=== PATIENT | female | born 1975 | race Hispanic/Latino ===

== ENCOUNTER 2017-05-28 17:12 | Inpatient (IN) | payer SELFPAY ==
[~2017-05-28 17:12] MED LIST: ISOVUE-370 76%-LOCM 1 ML ONE
[2017-05-28 17:38] LABS: Hematocrit 45.5 % (36.0-47.0); Red Blood Cell (RBC) Count 5.22 mill/uL (4.20-5.40); White Blood Cell (WBC) Count 21.7 thou/uL (4.8-10.8)
[2017-05-28 17:58] LABS: Band 11 % (5-11); Neutrophil 74 % (42-75)
[2017-05-28 18:03] LABS: ALT (SGPT) 12 U/L (8-55); AST (SGOT) 16 U/L (5-34); Alkaline Phosphatase 139 U/L (40-150); Anion Gap 13 mmol/L (10-20); BUN (Urea Nitrogen) 12 mg/dL (7.0-18.7); Bilirubin, Total 0.6 mg/dL (0.2-1.2); Calc. Creatinine Clearance 0 mL/min (70-130); Calcium 9.4 mg/dL (7.8-10.44); Carbon Dioxide 28 mmol/L (22-29); Chloride 99 mmol/L (98-107); Estimated GFR-MDRD 81; Globulin 3.5 g/dL (2.4-3.5); Protein, Total 7.5 g/dL (6.0-8.3)
[2017-05-28] MEDS ORDERED: Acetaminophen 500 MG TAB ONE ×2 (19:01)
[2017-05-28 19:09] LABS: Bilirubin Negative (Negative); Blood, Urine Negative (Negative); Glucose, Urine (Dipstick) >=1000 mg/dL (Negative); Ketone, Urine Trace mg/dL (Negative); Nitrite Negative (Negative); Protein, Urine (Dipstick) Negative (Neg-Trace); Urobilinogen 0.2 mg/dL (0.2-1.0)
[2017-05-28 21:34] LABS: Bacteria/HPF None Seen HPF (None Seen); Hyaline Casts/LPF 0-3 HYALINE CAST LPF (0-3 Hyaline); RBC/HPF 0-3 HPF (0-3); Squamous Epithelial 0-3 HPF (0-3); WBC/HPF 0-3 HPF (0-3)
[2017-05-28] MEDS ORDERED: cefTRIAXone\\ROCEPHIN 1 GM VIAL ONE (21:43)
[2017-05-28] MEDS ORDERED: diphenhydrAMINE HCl 50 MG/ML 1 ML VIAL ONE (22:13)
--- NOTE | 2017-05-28 23:17 | CT ---
CT OF THE ABDOMEN AND PELVIS WITH CONTRAST: COMPARISON: 05/07/2017 HISTORY: Lower abdominal pain. The patient was seen for similar pain in the past and was diagnosed with pelv ic inflammatory disease. TECHNIQUE: Multiple contiguous axial images are obtained in a CT of the abdomen and pelvis with contrast. Rossana nal reformats were performed. FINDINGS: The patient is status post cholecystectomy. There is a stable hyperdense region adjacent to the fal ciform ligament which may represent a small amount of focal fat in the liver. No focal liver lesion s are otherwise seen. There is a 2.5 cm hypodensity in the right kidney which likely represents a c yst. The left kidney, adrenal glands, spleen, and pancreas are unremarkable. No free air, free flu id, or stranding changes are seen in the abdomen or pelvis. The reproductive organs are unremarkable. No focal fluid collection is seen in either adnexal regio n. The large and small bowel are unremarkable. The appendix is not definitely seen. Degenerative changes are seen in the spine. The visualized inferior thorax and abdominal wall soft tissues are unremarkable. IMPRESSION: 1. No evidence of acute intraabdominal/pelvic abnormality. 2. Right renal cyst. POS: [facility]
[2017-05-28] MEDS ORDERED: Acetaminophen 500 MG TAB PO PRN (23:43)
[2017-05-28] MEDS ORDERED: Gentamicin 80 MG/2 ML VIAL IVPB SCH (23:45)
[2017-05-28] MEDS ORDERED: Dextrose 50% Abboject 50 ML SYRINGE SLOW IVP PRN (23:49)
[2017-05-28] MEDS ORDERED: Dextrose 5% in Water 1,000 ML IV PRN (23:49)
[2017-05-28] MEDS ORDERED: Fluconazole 100 MG TAB PO SCH (23:59)
--- NOTE | 2017-05-29 00:02 | ULT ---
PELVIC ULTRASOUND 05/28/17 HISTORY: Pelvic pain. FINDINGS: Multiple transabdominal and endovaginal sonographic images of the pelvis are obtained. The uterus has a normal sonographic appearance measuring 11.6 cm x 5.9 cm x 6.1 cm. The endometrial stripe measures 0.6 cm in thickness which is within normal limits for the patient's age. A few Nabothian cysts are seen in the cervix. The ovaries demonstrate a normal sonographic appearance bilaterally with the right ovary measuring 3 .4 cm x 4.3 cm x 2.4 cm and the left ovary measuring 4.8 cm x 2.9 cm x 2.2 cm. Doppler evaluation of each ovary with spectral analysis and color flow evaluation demonstrates arter ial and venous flow. No free fluid is seen in the cul-de-sac. Free fluid is seen in the pelvis on study on 04/15/17 is no longer visualized on this exam. IMPRESSION: Normal appearing uterus and bilateral ovaries. POS: [facility]
[2017-05-29] MEDS ORDERED: Insulin Detemir 100 UNITS/ML 20 UNITS in Pre-Filled Syringe 1 EACH SC SCH (00:30)
[2017-05-29] MEDS ORDERED: PROVENTIL INHALER 6.7 G (200 INHALATIONS) INH PRN (00:31)
[2017-05-29] MEDS: Lactated Ringer's 1,000 ML IV SCH ×4 (00:42→17:37)
[2017-05-29] MEDS: Sodium Chloride 0.9% 20 ML ONE ×2 (00:44→00:49)
[2017-05-29] MEDS: Clindamycin/D5W 900 MG in Premix Bag 1 BAG IVPB SCH ×3 (00:45→15:59)
[2017-05-29] MEDS ORDERED: Ibuprofen 800 MG TAB PO PRN (06:00)
[2017-05-29] MEDS ORDERED: Ibuprofen 800 MG TAB PO SCH (06:00)
[2017-05-29] MEDS: HumaLOG 300 UNITS/3 ML VIAL SC PRN (06:19)
[2017-05-29 07:30] LABS: #Eosinphils 0.2 thou/uL (0.0-0.7); #Lymphocytes 1.4 thou/uL (1.20-3.40); #Monocytes 0.8 thou/uL (0.11-0.59); #Neutrophils 12.3 thou/uL (1.40-6.50); %Basophils 0.2 % (0.0-1.0); %Eosinophils 1.3 % (0.0-10.0); %Lymphocytes 9.3 % (21.0-51.0); %Monocytes 5.1 % (0.0-10.0); Hematocrit 37.8 % (36.0-47.0); Mean Platelet Volume 9.5 fL (7.4-10.4); Red Blood Cell (RBC) Count 4.35 mill/uL (4.20-5.40); White Blood Cell (WBC) Count 14.6 thou/uL (4.8-10.8)
[2017-05-29] MEDS ORDERED: glipiZIDE 5 MG TAB PO SCH (07:30)
[2017-05-29 07:46] LABS: Anion Gap 11 mmol/L (10-20); BUN (Urea Nitrogen) 6 mg/dL (7.0-18.7); Calc. Creatinine Clearance 192 mL/min (70-130); Calcium 8.2 mg/dL (7.8-10.44); Carbon Dioxide 25 mmol/L (22-29); Chloride 104 mmol/L (98-107); Estimated GFR-MDRD Greater than 90
--- NOTE | 2017-05-29 08:16 | PRG ---
DATE OF SERVICE: 05/29/2017 SUBJECTIVE: The patient reports slight decrease in her pain overnight. She denies any nausea, vomi ting. She does have an appetite. OBJECTIVE: VITAL SIGNS: Temperature 97.3, pulse 76, respiratory rate 19, blood pressure 101/53. GENERAL: Nontoxic appearing female in no acute distress. ABDOMEN: Obese, tender in the bilateral lower quadrants. ASSESSMENT AND PLAN: Hospital day #2 for this 41-year-old female with pelvic inflammatory disease a nd failed outpatient management. White blood cell count is decreased to 14.6 this morning and the p atient has been afebrile since her temperature in the emergency department of 102.6. We will consid er her for discharge tomorrow if she continued to be afebrile.
--- NOTE | 2017-05-29 08:17 | HP ---
DATE OF SERVICE: 05/28/2017 CHIEF COMPLAINT: Pelvic inflammatory disease with failed outpatient management. HISTORY OF PRESENT ILLNESS: At the time of presentation, Ms. Lewis is a 41- year-old female who was diagnosed with pelvic inflammatory disease in early May. She had outpatient management with doxycycline and Flagyl, but did not complete one of the medications and states that the other cause nausea and vomiting, so it has not been completely treated. She returns today with low- grade temperatures at home, but a fever of 102.6 in the emergency department and worsening lower abdominal pain. The patient denies any nausea or vomiting. She does report fever and chills at home of 100.0. She denies any cardiovascular complaints. She does report a productive cough with clear sputum for the last month. She was seen by her [facility] primary care provider and a Ventolin inhaler was prescribed. The patient states that this does help with the cough. She denies any usual vaginal discharge, itching, odor or irritation. REVIEW OF SYSTEMS: Per HPI. PAST MEDICAL HISTORY: 1. Diabetes. 2. Remote history of hypertension. PAST SURGICAL HISTORY: section x3, the last one was 2 years ago. GYNECOLOGIC HISTORY: The patient states that she thinks her last Pap smear was approximately 2 years ago after her last delivery. She denies any history of sexually transmitted infections. She has been for 20 years and denies any new sexual partners. She was last sexually active 1 week ago. SOCIAL HISTORY: The patient reports stopping smoking 1 year ago. She denies any alcohol or illicit drug use. ALLERGIES: PENICILLIN, patient is unsure of the reaction, CODEINE. Patient states that made her tonsils bled after tonsillectomy. VANCOMYCIN causes hives, CIPROFLOXIN cough hives. MEDICATIONS: 1. Levemir 40 mg in the morning and 20 mg in the evening. 2. Glyburide 5 mg p.o. each morning. 3. Ventolin inhaler 2 puffs q.4 hours as needed. PHYSICAL EXAMINATION: VITAL SIGNS: Temperature 97.3, pulse 76, respiratory rate 19, blood pressure 101/63. GENERAL: Nontoxic appearing female in no acute distress. HEENT: Normocephalic, atraumatic. LUNGS: Respirations are unlabored. ABDOMEN: Obese, soft, tender in the bilateral lower quadrants. No rebound, no guarding. EXTREMITIES: Without cyanosis, clubbing or edema. NEUROLOGIC: Alert and oriented x3, no focal deficits. PSYCHIATRIC: Normal affect. IMAGING: CT of the abdomen and pelvis is negative for acute intra-abdominal or pelvic abnormality and a right renal cyst was noted. Pelvic ultrasound is notable for normal appearing uterus and bilateral ovaries. LABORATORY DATA: White blood cell count 21.7, hematocrit 45.5, platelets 204, 000. Sodium and potassium are within normal limits. BUN is 12, creatinine 0.78 , and glucose is 330. Urinalysis is notable for glucosuria, trace ketonuria, negative for pyuria. Wet prep is notable for Anita, gonorrhea, chlamydia, and blood cultures are all pending. ASSESSMENT AND PLAN: A 41-year-old female with failed outpatient management of pelvic inflammatory disease. The patient will be admitted and placed on gentamicin and clindamycin for treatment of the pelvic inflammatory disease. We will administer Diflucan 150 mg p.o. in a single dose for treatments of the Anita vaginitis. We will place the patient back on her Levemir and glyburide for control of her diabetes with sliding scale insulin in the moderate dose range for coverage as needed. We will plan to repeat labs in the morning. MTDD
[2017-05-29] MEDS ORDERED: Lisinopril 2.5 MG TAB PO SCH (09:00)
[2017-05-29] MEDS: Insulin Detemir 100 UNITS/ML 40 UNITS in Pre-Filled Syringe 1 EACH SC SCH (09:12)
[2017-05-29] MEDS: glyBURIDE 5 MG TAB PO SCH (09:55)
--- NOTE | 2017-05-29 11:16 | RAD ---
SINGLE VIEW OF THE CHEST: Comparison: 12-04-16 History: Sepsis. FINDINGS: Single view of the chest shows a normal sized cardiomediastinal silhouette with atherosclerotic calc ifications in the aorta. There is no evidence of consolidation, mass, or pleural effusions. IMPRESSION: 1. No evidence of acute cardiopulmonary disease. 2. Atherosclerotic disease. POS: [facility]
[2017-05-29] MEDS: Simethicone Chewable 80 MG TAB PO PRN (18:09)
[2017-05-29] MEDS: Insulin Detemir 100 UNITS/ML 20 UNITS in Pre-Filled Syringe 1 EACH SC SCH (21:06)
[2017-05-30] MEDS: Clindamycin/D5W 900 MG in Premix Bag 1 BAG IVPB SCH ×3 (00:02→16:37)
[2017-05-30] MEDS: Lactated Ringer's 1,000 ML IV SCH ×2 (06:22→09:30)
--- NOTE | 2017-05-30 08:07 | PRG ---
DATE OF SERVICE: 05/30/2017 HISTORY OF PRESENT ILLNESS: The patient is a 41-year-old diabetic female who was admitted for PID a fter failed outpatient therapy. The patient is now on hospital day #2 on IV gentamicin and clindamy kush. She has remained afebrile since just after admission and has had improvement in her white coun t from 21,000 to 14,000 yesterday. The patient reports this morning that her pain is improving. Calvin bueno has a little bit of lower abdominal pain still, but is much improved since admission. She is aski ng about when she can discharge home. PHYSICAL EXAMINATION: VITAL SIGNS: Blood pressure is 106/60, temperature 97.9, pulse of 56, respiratory rate of 16. GENERAL: She appears to be in no acute distress. She is alert and oriented, and cooperative and pl easant to interact with. HEENT: Normocephalic, atraumatic. ABDOMEN: Soft. She has some minimal tenderness to palpation and the patient is ambulating. ASSESSMENT AND PLAN: 1. The patient is a 41-year-old female with a diagnosis of pelvic inflammatory disease on gentamici n and clindamycin. We will continue these antibiotics until tomorrow. 2. Diabetes mellitus. The patient has shown improvement in her blood sugars with her home medicati on use. Fasting sugars this morning were 92. 3. Anticipate discharge tomorrow.
[2017-05-30] MEDS ORDERED: Fluconazole 100 MG TAB PO SCH (09:00)
[2017-05-30] MEDS ORDERED: Lactinex Tablet PO SCH (09:00)
[2017-05-30] MEDS: glyBURIDE 5 MG TAB PO SCH (09:30)
[2017-05-30] MEDS: Insulin Detemir 100 UNITS/ML 40 UNITS in Pre-Filled Syringe 1 EACH SC SCH (09:31)
[2017-05-30] MEDS: HumaLOG 300 UNITS/3 ML VIAL SC PRN ×2 (12:47→16:36)
[2017-05-30] MEDS: Simethicone Chewable 80 MG TAB PO PRN (20:15)
[2017-05-30] MEDS: Insulin Detemir 100 UNITS/ML 20 UNITS in Pre-Filled Syringe 1 EACH SC SCH (21:19)
[2017-05-31] MEDS: Clindamycin/D5W 900 MG in Premix Bag 1 BAG IVPB SCH (00:14)
[2017-05-31 05:42] LABS: #Eosinphils 0.5 thou/uL (0.0-0.7); #Lymphocytes 2.9 thou/uL (1.20-3.40); #Monocytes 0.9 thou/uL (0.11-0.59); #Neutrophils 3.9 thou/uL (1.40-6.50); %Basophils 0.5 % (0.0-1.0); %Eosinophils 6.3 % (0.0-10.0); %Lymphocytes 34.3 % (21.0-51.0); %Monocytes 11.3 % (0.0-10.0); Hematocrit 36.9 % (36.0-47.0); Mean Platelet Volume 9.8 fL (7.4-10.4); Red Blood Cell (RBC) Count 4.19 mill/uL (4.20-5.40); White Blood Cell (WBC) Count 8.3 thou/uL (4.8-10.8)
--- NOTE | 2017-05-31 07:18 | DIS ---
DATE OF ADMISSION: 05/28/2017 FATE OF DISCHARGE: 05/31/2017 LOCATIONS: [facility] on [address], [place]. The patient in room 318. PRINCIPAL DIAGNOSIS: Suspected pelvic infection. Test performed included an abdominal and pelvic C T and a pelvic ultrasound. In brief, this is a patient who was admitted by Dr. Tommy Anderson as a 41-year-old female w ith a diagnosis of pelvic inflammatory disease in early May. She had outpatient management wi th doxycycline and Flagyl, but she did not complete one of the medications and states that the other cause nausea and vomiting, so it was not adequately treated. She returned on the day of admission with a complaint of low grade temperature at home, but her fever in the ER was 102.6. She was admit hany with a diagnosis of persistent PID and diabetes. She has a remote history of hypertension. For full details on that admission, please turn to the H\T\P. She has a known allergy to PENICILLIN, C ODEINE, VANCOMYCIN, and CIPROFLOXACIN. Her medications at home included Levemir and glyburide for d iabetes. During this admission, she was placed on gentamicin and clindamycin. After her admission, her T-max was 99.8 on 05/28/2017 at 2342. After that temperature, she remained afebrile and on the day of discharge when I evaluated the patient at 0600, her most recent temperature at 0420 was 98.5 , pulse was in the 70s to 60s, blood pressures were 115/78-121/78. On laboratory assessment, initia l white blood cell count was 21 and a repeat value was 8.3 on the day of discharge. Hematocrit was 36.9 at last check. She did have a CT scan performed on 05/28/2017, which showed no evidence of acu te intraabdominal pathology. Pelvic ultrasound was also performed on 05/28/2017 and then had a norm al appearing uterus and bilateral ovaries. As she had been afebrile for 48 hours, the decision was made to discharge her home on 05/31/2017, despite the fact that her gonorrhea and chlamydia PCR were not yet back. We did call the lab on the morning of 05/31/2017 at approximately 0600 and we were n otified that it will not be back for an additional 24 to possibly 48 hours. I instructed the patien t to follow up at [facility] to check the results of this last test. It is important to note that she also had a urine culture positive for GBS. Her blood cultures showed no growth to date. Our fi nal assessment on day of discharge is resolved pelvic infection, history of known diabetes. DISCHARGE MEDICATIONS: Include Doxycycline 100 mg 1 p.o. b.i.d. for 7 days. I did instruct her to complete her course of therapy and to continue her oral medication for her diabetes. I instructed h er to follow up at [facility] no later than 1 week for continue followup. The patient's bedside gl ucose readings ranged from 92 fasting to one high value of 170 on 05/30/2017 at 1634. On physical examination, her abdomen was soft and nontender. The patient stated that she felt horacio r. Once again, decision was made to discharge her home and have her follow up at [facility].
[2017-05-31 07:36] VITALS: BP 117/76; TEMP 98.3
[2017-05-31] MEDS: Lactated Ringer's 1,000 ML IV SCH (07:36)
== END 2017-05-31 08:00 | disposition home or self-care (01) | DRG 759 ==
LOC: ERS 17:12 → 3SE 23:39
PROVIDERS: ADMIT Obstetrics & Gynecology Obstetrics; ATTEND Obstetrics & Gynecology Obstetrics
DX: N73.9 Female pelvic inflammatory disease, unspecified (principal); I10 Essential (primary) hypertension; E11.9 Type 2 diabetes mellitus without complications; Z88.0 Allergy status to penicillin; B37.3 Candidiasis of vulva and vagina; Z87.891 Personal history of nicotine dependence; Z88.1 Allergy status to other antibiotic agents; Z88.5 Allergy status to narcotic agent; Z90.49 Acquired absence of other specified parts of digestive tract
CPT/HCPCS: 36415; 36416; 71010; 74177; 76856; 80048; 80053; 81003; 81025; 83605; 85025; 87040; 87077; 87086; 87480; 87491; 87510; 87591; 87660; 96361; 96365; 96368; A4216; J0696; J1200; J1580; J1815; J3490; J7050

== ENCOUNTER 2017-12-21 13:00 | Emergency (ER) | payer SELFPAY ==
[2017-12-21 13:37] LABS: #Basophils 0.1 thou/uL (0.0-0.2); #Eosinphils 0.3 thou/uL (0.0-0.7); #Lymphocytes 1.6 thou/uL (1.20-3.40); #Monocytes 0.6 thou/uL (0.11-0.59); #Neutrophils 5.1 thou/uL (1.40-6.50); %Basophils 1.2 % (0.0-1.0); %Eosinophils 4.3 % (0.0-10.0); %Lymphocytes 21.2 % (21.0-51.0); %Monocytes 7.5 % (0.0-10.0); %Neutrophils 65.8 % (42.0-75.0); Mean Corpuscular Hemoglobin 29.4 pg (27.0-31.0); Mean Corpuscular Volume 86.5 fl (81.0-99.0); Mean Platelet Volume 8.5 fL (7.4-10.4); Platelet Count 215 thou/uL (130-400); RBC Distribution Width 12.5 % (11.5-14.5); White Blood Cell (WBC) Count 7.7 thou/uL (4.8-10.8)
[2017-12-21 14:03] LABS: ALT (SGPT) 32 U/L (8-55); AST (SGOT) 11 U/L (5-34); Alkaline Phosphatase 156 U/L (40-150); Anion Gap 13 mmol/L (10-20); BUN (Urea Nitrogen) 13 mg/dL (7.0-18.7); Bilirubin, Total 0.5 mg/dL (0.2-1.2); CK (CPK) 47 U/L (29-168); Calc. Creatinine Clearance 0 mL/min (70-130); Calcium 9.4 mg/dL (7.8-10.44); Carbon Dioxide 27 mmol/L (22-29); Chloride 103 mmol/L (98-107); Estimated GFR-MDRD 86; Globulin 3.1 g/dL (2.4-3.5); Glucose 270 mg/dL (70-105); Potassium 4.1 mmol/L (3.5-5.1); Protein, Total 7.1 g/dL (6.0-8.3); Sodium 139 mmol/L (136-145)
[2017-12-21 14:05] LABS: CKMB 0.4 ng/mL (0-6.6); Troponin I Less than 0.010 ng/mL (< 0.028)
--- NOTE | 2017-12-21 15:35 | RAD ---
CHEST ONE VIEW: HISTORY: Chest pain. COMPARISON: Chest radiograph from 05/28/2017. FINDINGS: There is a nodule in the right mid lung, peripherally. Heart size is at the upper limits of normal. No focal air space consolidation, pneumothorax, or effusion. IMPRESSION: Faint right mid lung peripheral pulmonary nodule. This may reflect a pulmonary vessel seen enface. Follow-up radiographs in six months recommended. POS: [facility]
== END 2017-12-21 15:44 | disposition home or self-care (01) ==
LOC: ERS 13:00
DX: R00.2 Palpitations (principal); E66.9 Obesity, unspecified; J45.909 Unspecified asthma, uncomplicated; E11.9 Type 2 diabetes mellitus without complications; F41.9 Anxiety disorder, unspecified; F32.9 Major depressive disorder, single episode, unspecified; Z79.4 Long term (current) use of insulin
CPT/HCPCS: 36415; 71045; 80053; 82553; 84443; 84484; 85025; 93005; 94760

== ENCOUNTER 2018-05-13 12:25 | Inpatient (IN) | payer SELFPAY ==
[2018-05-13] MEDS ORDERED: Ibuprofen 200 MG TAB ONE (12:41)
[2018-05-13 13:18] LABS: Hemoglobin 14.5 g/dL (12.0-16.0); Mean Corpuscular HGB CONC 33.2 g/dL (32.0-36.0); Mean Corpuscular Hemoglobin 28.6 pg (27.0-31.0); Mean Platelet Volume 8.9 fL (7.4-10.4); Platelet Count 224 thou/uL (130-400); RBC Distribution Width 12.2 % (11.5-14.5); Red Blood Cell (RBC) Count 5.08 mill/uL (4.20-5.40); White Blood Cell (WBC) Count 20.7 thou/uL (4.8-10.8)
[2018-05-13] MEDS ORDERED: Morphine 4 MG/ML VIAL ONE (13:30)
[2018-05-13] MEDS ORDERED: Ondansetron HCl/PF 4 MG/2 ML Vial ONE (13:30)
[2018-05-13 13:33] LABS: Band 24 % (5-11); Eosinophils 1 % (0-10); Lymphocytes 6 % (21-51); MDiff Complete? YES; Monocytes 3 % (0-10); Neutrophil 66 % (42-75); RBC Morphology Normal
[2018-05-13 13:34] LABS: ALT (SGPT) 17 U/L (8-55); AST (SGOT) 17 U/L (5-34); Albumin 4.3 g/dL (3.5-5.0); Alkaline Phosphatase 184 U/L (40-150); Anion Gap 15 mmol/L (10-20); BUN (Urea Nitrogen) 9 mg/dL (7.0-18.7); Bilirubin, Total 0.8 mg/dL (0.2-1.2); Calc. Creatinine Clearance 0 mL/min (70-130); Calcium 9.9 mg/dL (7.8-10.44); Carbon Dioxide 26 mmol/L (22-29); Chloride 96 mmol/L (98-107); Estimated GFR-MDRD 71; Globulin 4.2 g/dL (2.4-3.5); Glucose 339 mg/dL (70-105); Potassium 3.9 mmol/L (3.5-5.1); Protein, Total 8.5 g/dL (6.0-8.3); Sodium 133 mmol/L (136-145)
--- NOTE | 2018-05-13 14:06 | ULT ---
LEFT LOWER EXTREMITY VENOUS DOPPLER WITH SPECTRAL ANALYSIS AND COLORFLOW EVALUATION: 05/13/2018 HISTORY: Left foot infection for a few months. Left leg swelling and pain. COMPARISON: 12/04/2016 TECHNIQUE: Coppola-scale, color-flow, Doppler evaluation, and spectral analysis of the left lower extremity venous structures is performed with 2D imaging. The left lower extremity common femoral, superficial femora l, popliteal, posterior tibial, most proximal greater saphenous, and profunda femoral veins are image d. FINDINGS: There is normal lumen compressibility, flow, and augmentation in the visualized deep venous structure s of the left lower extremity. There is an enlarged left inguinal lymph node, which may represent a conglomeration of lymph nodes, w hich measure 6.1 cm x 1.2 cm x 1.1 cm. Given the history of infection, this could be related to reac tive lymphadenopathy. IMPRESSION: 1. No evidence of a deep venous thrombosis involving the visualized deep venous structures of the le ft lower extremity. 2. Enlarged lymph nodes, left groin, which may be reactive. POS: [facility]
[2018-05-13] MEDS ORDERED: Cefepime 2 GM VIAL ONE (14:31)
[2018-05-13] MEDS ORDERED: Cefepime 1 GM VIAL ONE (14:32)
[2018-05-13] MEDS ORDERED: Acetaminophen 500 MG TAB ONE (15:40)
[2018-05-13] MEDS ORDERED: Dextrose 5% in Water 1,000 ML IV PRN (16:16)
[2018-05-13] MEDS ORDERED: traMADol HCl 50 MG TAB PO PRN (16:16)
[2018-05-13] MEDS ORDERED: Dextrose 50% Abboject 50 ML SYRINGE SLOW IVP PRN (16:16)
[2018-05-13] MEDS ORDERED: HumaLOG 300 UNITS/3 ML VIAL SC PRN (16:16)
[2018-05-13] MEDS ORDERED: Ondansetron HCl/PF 4 MG/2 ML Vial IVP PRN (16:16)
[2018-05-13 17:38] LABS: Bilirubin Negative (Negative); Blood, Urine Negative (Negative); Clarity CLEAR (Clear); Glucose, Urine (Dipstick) >=1000 mg/dL (Negative); Leukocyte Negative (Negative); Nitrite Negative (Negative); Protein, Urine (Dipstick) Negative (Neg-Trace); Specific Gravity, Urine 1.038 (1.002-1.036); Urobilinogen 0.2 mg/dL (0.2-1.0); pH, Urine 5.5 (5.0-9.0)
[2018-05-13] MEDS: Sodium Chloride 0.9% 1,000 ML IV SCH (18:00)
[2018-05-13] MEDS: PROVENTIL INHALER 6.7 G (200 INHALATIONS) INH SCH (18:11)
[2018-05-13 18:18] VITALS: BMI 43.9
[2018-05-13] MEDS: Docusate 100 MG CAP PO SCH (20:47)
[2018-05-13] MEDS: Acetaminophen 325 MG TAB PO PRN (20:48)
[2018-05-13] MEDS: Famotidine 20 MG TAB PO SCH (20:48)
[2018-05-13] MEDS ORDERED: Non-Formulary Item 1 EACH (Levemir Flexpen [Levemir Flexpen] 20 UNIT) SC SCH (21:00)
[2018-05-13] MEDS ORDERED: Cefepime 2 GM in Sodium Chloride 0.9% 100 ML IVPB SCH (21:00)
--- NOTE | 2018-05-13 21:02 | HP ---
DATE OF ADMISSION: 05/13/2018 REASON FOR ADMISSION: Sepsis, left lower extremity cellulitis. HISTORY OF PRESENT ILLNESS: The patient gives history of having swelling and pain in the left lower extremity. This started last night. She developed fever with chills overnight and it got worse this morning. She has been having cough with yellow expectoration and thinks that she has gotten bronchi tis as well. She has a known history of eczema, which pops up over the left foot dorsal aspect. It is currently not acting up per the patient. No complaints of urinary frequency or urgency. No compl aints of chest pain, palpitation, PND or orthopnea. She normally ambulates by herself. PAST MEDICAL AND SURGICAL HISTORY: History of diabetes mellitus type 2, obesity, eczema, specificall y over the dorsum of left foot, asthma, cholecystectomy, x3, tonsillectomy and adenoidectom y. CURRENT MEDICATIONS: The patient is on Levemir 20 units subcu q.a.m. and 50 units subcu at bedtime, albuterol inhaler p.r.n., glyburide 5 mg daily. ALLERGIES: Allergic to CIPROFLOXACIN, CODEINE, PENICILLIN and VANCOMYCIN. PERSONAL HISTORY: Does not abuse alcohol or drugs. No history of smoking. FAMILY HISTORY: Mother has diabetes. Father is healthy. The patient lives with her . CODE STATUS: Full. REVIEW OF SYSTEMS: The following complete review of systems was negative, unless otherwise mentioned in the HPI or below: Constitutional: Weight loss or gain, ability to conduct usual activities. Sk in: Rash, itching. Eyes: Double vision, pain. ENT/Mouth: Nose bleeding, neck stiffness, pain, te nderness. Cardiovascular: Palpitations, dyspnea on exertion, orthopnea. Respiratory: Shortness of breath, wheezing, cough, hemoptysis, fever or night sweats. Gastrointestinal: Poor appetite, abdom inal pain, heartburn, nausea, vomiting, constipation, or diarrhea. Genitourinary: Urgency, frequenc y, dysuria, nocturia. Musculoskeletal: Pain, swelling. Neurologic/Psychiatric: Anxiety, depressio n. Allergy/Immunologic: Skin rash, bleeding tendency. PHYSICAL EXAMINATION: GENERAL: The patient is a 42-year-old female who is currently not in any acute distress. VITAL SIGNS: Blood pressure 134/66, pulse 94 per minute, respiratory rate 20 per minute, temperature 101.3 degrees Fahrenheit, saturating 96% on room air. NECK: Supple. No elevated JVD. HEENT: Extraocular muscles intact. Pupils reacting to light. Oral cavity, mucous membranes are noé st. No exudates or congestion. CARDIOVASCULAR: S1, S2 heard. Regular rhythm. RESPIRATORY: Air entry 2+ bilateral. Scattered rhonchi plus. No rales or wheezes. ABDOMEN: Soft. Bowel sounds heard. No tenderness. EXTREMITIES: Left lower extremity, there is erythema and tenderness. There is also edema more so on the left calf area and drying of skin with eczematous scar over the left dorsum of the foot. VASCULAR: Peripheral pulses are 2+ bilateral. No ischemic ulcerations or gangrene. CENTRAL NERVOUS SYSTEM: No gross focal deficits noted. The patient is alert, awake and oriented wel l. PSYCHIATRIC: The patient's mood is euthymic. No hallucinations or delusions. LABORATORY AND X-RAY FINDINGS: Ultrasound venous Doppler of the left lower extremity done shows no e vidence of DVT and there was enlarged lymph nodes in the left groin. White count of 20, H and H 14 a nd 43, platelet count 224,000 with 66% neutrophils and 24% bands. Sodium 133, chloride 96, creatinin e 0.8, glucose is 339, alkaline phosphatase 184. AST, ALT and T bilirubin within normal limits. Alb umin is 4.3. CLINICAL IMPRESSION AND PLAN: The patient will be admitted to medical floor for sepsis, left lower e xtremity cellulitis, uncontrolled diabetes mellitus type 2, hyponatremia. The patient will be on cef epime 2 g IV q.12 hourly as she is allergic to QUINOLONES, PENICILLIN and VANCOMYCIN. She is also al lergic to CODEINE. We will also add doxycycline for her mild asthma exacerbation. She will be on al buterol nebulizer q.6 hourly, gentle hydration with normal saline at 70 mL per hour. We will continu e her Levemir and glyburide as before. We will continue to closely monitor her for any hemodynamic c ompromise.
[2018-05-13] MEDS: Insulin Glargine 20 UNITS in Pre-Filled Syringe 1 EACH SC SCH (21:40)
[2018-05-13] MEDS: Doxycycline 100 MG CAP PO SCH (21:40)
[2018-05-14] MEDS: PROVENTIL INHALER 6.7 G (200 INHALATIONS) INH SCH ×7 (00:04→22:15)
[2018-05-14] MEDS: Albuterol Sulfate 1.25 MG/3 ML NEB NEB SCH ×4 (00:04→22:13)
[2018-05-14] MEDS: Cefepime 2 GM in Sodium Chloride 0.9% 100 ML IVPB SCH ×2 (01:47→13:03)
[2018-05-14 04:56] LABS: Anion Gap 12 mmol/L (10-20); BUN (Urea Nitrogen) 8 mg/dL (7.0-18.7); Calc. Creatinine Clearance 181 mL/min (70-130); Calcium 8.6 mg/dL (7.8-10.44); Carbon Dioxide 24 mmol/L (22-29); Chloride 101 mmol/L (98-107); Estimated GFR-MDRD Greater than 90; Glucose 290 mg/dL (70-105); Potassium 3.6 mmol/L (3.5-5.1); Sodium 133 mmol/L (136-145)
[2018-05-14 05:14] LABS: Band 24 % (5-11); Hemoglobin 13.1 g/dL (12.0-16.0); Lymphocytes 5 % (21-51); MDiff Complete? YES; Mean Corpuscular HGB CONC 33.8 g/dL (32.0-36.0); Mean Corpuscular Hemoglobin 29.3 pg (27.0-31.0); Mean Corpuscular Volume 86.5 fL (78.0-98.0); Mean Platelet Volume 9.2 fL (7.4-10.4); Monocytes 2 % (0-10); Neutrophil 68 % (42-75); Platelet Count 191 thou/uL (130-400); RBC Distribution Width 12.4 % (11.5-14.5); Reactive Lymphocytes 1 % (0-10); Red Blood Cell (RBC) Count 4.49 mill/uL (4.20-5.40); White Blood Cell (WBC) Count 13.7 thou/uL (4.8-10.8)
[2018-05-14] MEDS: Sodium Chloride 0.9% 1,000 ML IV SCH (05:20)
[2018-05-14] MEDS: Acetaminophen 325 MG TAB PO PRN ×3 (05:25→20:30)
[2018-05-14] MEDS: HumaLOG 300 UNITS/3 ML VIAL SC PRN ×3 (05:25→16:58)
[2018-05-14] MEDS: Enoxaparin Sodium 40 MG/0.4 ML SYRINGE SC SCH (08:28)
[2018-05-14] MEDS: Docusate 100 MG CAP PO SCH ×2 (08:28→20:30)
[2018-05-14] MEDS: Famotidine 20 MG TAB PO SCH ×2 (08:28→20:30)
[2018-05-14] MEDS: Doxycycline 100 MG CAP PO SCH (08:28)
[2018-05-14] MEDS: glyBURIDE 5 MG TAB PO SCH (08:32)
[2018-05-14] MEDS: Insulin Glargine 40 UNITS in Pre-Filled Syringe 1 EACH SC SCH (08:32)
[2018-05-14] MEDS ORDERED: Non-Formulary Item 1 EACH (Levemir Flexpen [Levemir Flexpen] 40 UNIT) SC SCH (09:00)
[2018-05-14] MEDS ORDERED: glyBURIDE 2.5 MG TAB PO SCH (09:00)
--- NOTE | 2018-05-14 10:33 | PDOC.PN ---
- Subjective Encounter Start Date: 05/14/18 Encounter Start Time: 07:00 Subjective: feels better, still has leg pain when she bears weight on it -: no sob - Objective Resuscitation Status: Resuscitation Status FULL:Full Resuscitation MAR Reviewed: Yes Vital Signs & Weight: Vital Signs (12 hours) Temp Pulse Resp BP Pulse Ox 05/14/18 07:32 99.4 F 102 H 18 105/67 96 05/14/18 06:40 113 H 16 94 L 05/14/18 04:00 100.3 F H 106 H 20 130/81 95 05/14/18 02:27 100 18 95 05/14/18 00:00 99.2 F 102 H 20 126/75 98 Weight Weight 240 lb 7 oz I&O: 05/13/18 05/14/18 05/15/18 06:59 06:59 06:59 Intake Total 1800 Balance 1800 Result Diagrams: 05/14/18 03:51 05/14/18 03:51 Additional Labs: Accuchecks 05/14/18 05/13/18 05:22 19:40 POC Glucose 293 H 306 H Phys Exam - Physical Examination HEENT: PERRLA, moist MMs Neck: no JVD, supple Respiratory: no wheezing, no rales Cardiovascular: RRR, no significant murmur Gastrointestinal: soft, non-tender, positive bowel sounds Musculoskeletal: pulses present, edema present left leg has more edema and erythem, has foot dorsum chr eczema Neurological: non-focal, moves all 4 limbs Psychiatric: normal affect, A&O x 3 Dx/Plan (1) Left leg cellulitis Code(s): L03.116 - CELLULITIS OF LEFT LOWER LIMB Status: Acute (2) Sepsis Code(s): A41.9 - SEPSIS, UNSPECIFIED ORGANISM Status: Acute Qualifiers: Sepsis type: sepsis due to unspecified organism Qualified Code(s): A41.9 - Sepsis, unspecified organism (3) Asthma Code(s): J45.909 - UNSPECIFIED ASTHMA, UNCOMPLICATED Status: Chronic Qualifiers: Asthma severity: moderate (4) DM (diabetes mellitus), type 2, uncontrolled Code(s): E11.65 - TYPE 2 DIABETES MELLITUS WITH HYPERGLYCEMIA Status: Chronic Qualifiers: Qualified Code(s): E11.65 - Type 2 diabetes mellitus with hyperglycemia (5) Morbid obesity with BMI of 40.0-44.9, adult Code(s): E66.01 - MORBID (SEVERE) OBESITY DUE TO EXCESS CALORIES; Z68.41 - BODY MASS INDEX (BMI) 40.0-44.9, ADULT Status: Chronic - Plan on cefepime for cellulitis, doxy for uri with h/o asthma -: tmax of 100, gentle iv hydration -: may wear hany hose if large size fits her calf -: on levemir 40u in am and 20u qpm, increase glyburide to 5mg daily -: wbc down to 13k from 20k, to amb more in hallway * . Review of Systems - Medications/Allergies Allergies/Adverse Reactions: Allergies Allergy/AdvReac Type Severity Reaction Status Date / Time ciprofloxacin [From Cipro] Allergy Verified 12/04/16 13:18 codeine Allergy Verified 12/04/16 13:18 Penicillins Allergy Verified 12/04/16 13:18 vancomycin Allergy Hives Verified 12/04/16 13:18 Medications: Current Medications Acetaminophen (Tylenol) 650 mg PO Q4H PRN PRN Reason: Headache/Fever or Pain Last Admin: 05/14/18 05:25 Dose: 650 mg Albuterol Sulfate (Proventil Hfa) 2 puff INH [id number] [facility] Last Admin: 05/14/18 06:45 Dose: 2 puff Albuterol Sulfate (Albuterol Sulfate) 1.25 mg NEB [id number] [facility] Last Admin: 05/14/18 06:40 Dose: 1.25 mg Dextrose/Water (Dextrose 50%) 25 gm SLOW IVP PRN PRN PRN Reason: Hypoglycemia Docusate Sodium (Colace) 100 mg PO BID [facility] Last Admin: 05/14/18 08:28 Dose: 100 mg Doxycycline Hyclate (Vibramycin) 100 mg PO BID [facility] Last Admin: 05/14/18 08:28 Dose: 100 mg Enoxaparin Sodium (Lovenox) 40 mg SC 0900 [facility] Last Admin: 05/14/18 08:28 Dose: 40 mg Famotidine (Pepcid) 20 mg PO BID [facility] Last Admin: 05/14/18 08:28 Dose: 20 mg Glucagon (Glucagon) 1 mg IM PRN PRN PRN Reason: Hypoglycemia Glyburide (Diabeta) 5 mg PO [facility] Last Admin: 05/14/18 08:32 Dose: 5 mg Guaifenesin/Dextromethorphan (Robitussin Dm) 15 ml PO Q4H PRN PRN Reason: Cough Dextrose/Water (D5w) 1,000 mls @ 0 mls/hr IV .Q0M PRN PRN Reason: Hypoglycemia Sodium Chloride (Normal Saline 0.9%) 1,000 mls @ 70 mls/hr IV .[id number] [facility] Last Admin: 05/14/18 05:20 Dose: 1,000 mls Insulin Glargine 20 units/ (Miscellaneous Medication) 0.2 mls @ 0 mls/hr SC HS [facility] Last Admin: 05/13/18 21:40 Dose: 0.2 mls Insulin Glargine 40 units/ (Miscellaneous Medication) 0.4 mls @ 0 mls/hr SC QAM [facility] Last Admin: 05/14/18 08:32 Dose: 0.4 mls Cefepime HCl 2 gm/ Sodium (Chloride) 100 mls @ 200 mls/hr IVPB 0200,1400 [facility] Last Admin: 05/14/18 01:47 Dose: 100 mls Insulin Human Lispro (Humalog) 0 units SC .AGGRESSIVE SLIDING PRN PRN Reason: Aggressive Correctional Scale Last Admin: 05/14/18 05:25 Dose: 9 unit Insulin Human Lispro (Humalog) 0 units SC .BEDTIME SLIDING SC PRN PRN Reason: Bedtime Correctional Scale Last Admin: 05/13/18 20:49 Dose: 4 unit Ondansetron HCl (Zofran) 4 mg IVP Q6H PRN PRN Reason: Nausea/Vomiting Tramadol HCl (Ultram) 50 mg PO Q6HR PRN PRN Reason: Moderate Pain (4-6)
[2018-05-14] MEDS: cefTRIAXone\\ROCEPHIN 1 GM in Sodium Chloride 0.9% 100 ML IVPB SCH (16:58)
[2018-05-14] MEDS: Insulin Glargine 20 UNITS in Pre-Filled Syringe 1 EACH SC SCH (20:31)
[2018-05-14] MEDS: Betamethasone 0.1% Cream 15 GM TUBE TOP SCH (20:32)
[2018-05-14] MEDS: Guaifenesin DM 100-10/5 ML UDCUP PO PRN (21:22)
[2018-05-15] MEDS: Sodium Chloride 0.9% 1,000 ML IV SCH ×2 (01:11→11:01)
[2018-05-15] MEDS: PROVENTIL INHALER 6.7 G (200 INHALATIONS) INH SCH ×6 (02:07→22:07)
[2018-05-15 04:10] LABS: #Eosinphils 0.2 thou/uL (0.0-0.7); #Lymphocytes 2.2 thou/uL (1.20-3.40); #Monocytes 0.6 thou/uL (0.11-0.59); #Neutrophils 3.4 thou/uL (1.40-6.50); %Basophils 0.4 % (0.0-1.0); %Eosinophils 3.7 % (0.0-10.0); %Lymphocytes 34.1 % (21.0-51.0); %Monocytes 9.6 % (0.0-10.0); %Neutrophils 52.3 % (42.0-75.0); Hemoglobin 11.8 g/dL (12.0-16.0); Mean Corpuscular HGB CONC 32.9 g/dL (32.0-36.0); Mean Corpuscular Hemoglobin 28.6 pg (27.0-31.0); Mean Corpuscular Volume 87.2 fL (78.0-98.0); Mean Platelet Volume 8.9 fL (7.4-10.4); Platelet Count 172 thou/uL (130-400); RBC Distribution Width 12.2 % (11.5-14.5); Red Blood Cell (RBC) Count 4.13 mill/uL (4.20-5.40); White Blood Cell (WBC) Count 6.5 thou/uL (4.8-10.8)
[2018-05-15 04:32] LABS: Anion Gap 11 mmol/L (10-20); BUN (Urea Nitrogen) 8 mg/dL (7.0-18.7); Calc. Creatinine Clearance 195 mL/min (70-130); Calcium 8.4 mg/dL (7.8-10.44); Carbon Dioxide 24 mmol/L (22-29); Chloride 104 mmol/L (98-107); Estimated GFR-MDRD Greater than 90; Glucose 249 mg/dL (70-105); Potassium 3.4 mmol/L (3.5-5.1); Sodium 136 mmol/L (136-145)
[2018-05-15] MEDS: HumaLOG 300 UNITS/3 ML VIAL SC PRN ×2 (05:40→11:01)
[2018-05-15] MEDS: Albuterol Sulfate 1.25 MG/3 ML NEB NEB SCH ×3 (07:39→22:06)
[2018-05-15] MEDS: glyBURIDE 5 MG TAB PO SCH (08:02)
[2018-05-15] MEDS: Enoxaparin Sodium 40 MG/0.4 ML SYRINGE SC SCH (08:02)
[2018-05-15] MEDS: Docusate 100 MG CAP PO SCH ×2 (08:02→20:42)
[2018-05-15] MEDS: Famotidine 20 MG TAB PO SCH ×2 (08:02→20:42)
[2018-05-15] MEDS: Potassium Chloride 20 MEQ TAB PO SCH ×2 (08:03→16:59)
[2018-05-15] MEDS: Betamethasone 0.1% Cream 15 GM TUBE TOP SCH ×2 (08:03→20:44)
[2018-05-15] MEDS: Insulin Glargine 40 UNITS in Pre-Filled Syringe 1 EACH SC SCH (08:34)
--- NOTE | 2018-05-15 09:19 | CON ---
DATE OF CONSULTATION: 05/14/2018 REASON FOR CONSULTATION: Cellulitis, left leg. HISTORY OF PRESENT ILLNESS: A 42-year-old who we have seen about 2 years ago with a history of recur rent cellulitis, venous stasis with insufficiency in lower extremities, type 2 diabetes mellitus, and obesity who developed another episode of cellulitis in the left leg. She has this chronic plaque-li ke lesion, pruritic, and with some drainage in the dorsal aspect of her left forefoot. No fever or c hills. No headaches. No visual symptoms, sore throat, odynophagia, dysphagia. No back pain. No dy spnea or chest pain. No abdominal pain or diarrhea. No genitourinary symptoms. PAST MEDICAL HISTORY: Type 2 diabetes, obesity, venous insufficiency, recurrent cellulitis, prior UT Is, depression. ALLERGIES: CIPROFLOXACIN, PENICILLIN, VANCOMYCIN. CURRENT MEDICATIONS: Tylenol, Proventil, cefepime, dextrose, famotidine, insulin, ondansetron, trama dol. FAMILY HISTORY: Type 2 diabetes. SOCIAL HISTORY: Current smoker. PHYSICAL EXAMINATION: VITAL SIGNS: T-max 100.3, blood pressure 103/62, pulse 109, respirations 20, O2 sat 96%. SKIN: Very faint erythema in a circumferential distribution in left leg, and then a chronic plaque-l scot hyperkeratotic lesion with some papules in the dorsal aspect of the left forefoot measuring about 10 cm x 4.5. Peripheral IV access. No Flores catheter. No lymphadenopathy. HEENT: Ocular movements conjugate. Oral cavity with only 2 or 3 remaining teeth. Oral mucosa is no rmal. NECK: Supple. No jugular vein distention. LUNGS: Symmetric air entry. HEART: S1, S2 regular rate. No S3 or S4. ABDOMEN: Soft. Not distended or tender. No ascites. No bladder distention. EXTREMITIES: No joint inflammatory activity. Pulses are 1+ in dorsalis pedis. Evidence of lymphede ma and stasis dermatitis in lower extremities, more prominent in the left side. Moves extremities eq ually. NEUROLOGIC: Cognitive function appears to be intact. LABORATORY DATA: White cell count was 20,000, down to 13,000; hemoglobin 13; platelets 191; 24% band s. Sodium 133, creatinine 0.87. Liver profile is normal. Serum total protein 8.5, albumin 4.3. e patient has had negative HIV serology in the past. Negative hepatitis C serology as well. Microbi ology with negative cultures from blood and urine thus far. The patient had a vascular ultrasound be fore this admission, which showed no evidence of deep vein thrombosis and reactive lymph nodes in lef t groin. ASSESSMENT: Obesity with type 2 diabetes and recurrent cellulitis of lower extremities associated wi th lymphedema. The patient has another episode at this time. It seems it might have been precipitat ed by the lesions of likely contact dermatitis, dorsal aspect of the left foot. Topical corticostero ids and Rocephin daily. Eventually, transition to oral Keflex, suppressive Keflex or azithromycin af ter that for a whole year. Compression stockings, although the patient is probably not going to be a ble to procure them due to the financial cost.
[2018-05-15] MEDS: Acetaminophen 325 MG TAB PO PRN ×2 (13:08→20:52)
[2018-05-15] MEDS: cefTRIAXone\\ROCEPHIN 1 GM in Sodium Chloride 0.9% 100 ML IVPB SCH (16:59)
[2018-05-15] MEDS: Guaifenesin DM 100-10/5 ML UDCUP PO PRN (20:43)
[2018-05-15] MEDS: Insulin Glargine 20 UNITS in Pre-Filled Syringe 1 EACH SC SCH (20:45)
--- NOTE | 2018-05-15 21:03 | PDOC.PN ---
- Subjective Encounter Start Date: 05/15/18 Encounter Start Time: 14:00 Patient seen and examined for cellulitis. Still has significant pain in left leg alexi on walking. Redness improving.. No overnight events - Objective Resuscitation Status: Resuscitation Status FULL:Full Resuscitation MAR Reviewed: Yes Vital Signs & Weight: Vital Signs (12 hours) Temp Pulse Resp BP BP Pulse Ox 05/15/18 20:00 98.9 F 97 20 104/68 97 05/15/18 18:35 73 12 93 L 05/15/18 16:53 98.3 F 74 18 116/70 94 L 05/15/18 11:25 80 20 05/15/18 11:11 98.7 F 73 16 106/72 99 Weight Weight 240 lb 7 oz I&O: 05/14/18 05/15/18 05/16/18 06:59 06:59 06:59 Intake Total 1800 2675 1500 Balance 1800 2675 1500 Result Diagrams: 05/15/18 03:39 05/15/18 03:39 Additional Labs: Accuchecks 05/15/18 05/15/18 05/15/18 15:50 11:00 04:36 POC Glucose 178 H 232 H 218 H Radiology Reviewed by me: No (Doppler - Neg) Phys Exam - Physical Examination Constitutional: NAD Respiratory: no wheezing, no rhonchi Cardiovascular: RRR, no rub Gastrointestinal: soft, non-tender, positive bowel sounds Musculoskeletal: edema present Warmth and tenderness in Left leg Neurological: moves all 4 limbs Dx/Plan - Plan out of bed/ambulate, DVT proph w/lovenox, DVT proph w/SCDs IMPRESSION: 1. Sepsis due to LLE Cellulitis 2. DM2 3. Morbid Obesity BMI 44 4. Hypokalemia / Other issues per previous notes PLAN: Cont Ceftriaxone Ambulate Cont Lantus with sliding scale Probable dc in 1-2 days on PO Atbx if stable Microbiology 05/13/18 13:06 Venous blood - Right Arm Blood Culture - Preliminary NO GROWTH AT 48 HOURS 05/13/18 12:59 Venous blood - Left Arm Blood Culture - Preliminary NO GROWTH AT 48 HOURS Review of Systems - Review of Systems Respiratory: negative: Cough, Dry, Shortness of Breath, Hemoptysis, SOB with Excertion, Pleuritic Pain, Sputum, Wheezing Cardiovascular: negative: chest pain, palpitations, orthopnea, paroxysmal nocturnal dyspnea, edema, light headedness, other - Medications/Allergies Allergies/Adverse Reactions: Allergies Allergy/AdvReac Type Severity Reaction Status Date / Time ciprofloxacin [From Cipro] Allergy Verified 12/04/16 13:18 codeine Allergy Verified 12/04/16 13:18 Penicillins Allergy Verified 12/04/16 13:18 vancomycin Allergy Hives Verified 12/04/16 13:18 Medications: Current Medications Acetaminophen (Tylenol) 650 mg PO Q4H PRN PRN Reason: Headache/Fever or Pain Last Admin: 05/15/18 20:52 Dose: 650 mg Albuterol Sulfate (Proventil Hfa) 2 puff INH [id number] [facility] Last Admin: 05/15/18 18:35 Dose: 2 puff Albuterol Sulfate (Albuterol Sulfate) 1.25 mg NEB [id number] [facility] Last Admin: 05/15/18 16:23 Dose: Not Given Betamethasone Valerate (Valisone 0.1% Cream) 0 gm TOP BID [facility] Last Admin: 05/15/18 20:44 Dose: 1 applic Dextrose/Water (Dextrose 50%) 25 gm SLOW IVP PRN PRN PRN Reason: Hypoglycemia Docusate Sodium (Colace) 100 mg PO BID [facility] Last Admin: 05/15/18 20:42 Dose: Not Given Enoxaparin Sodium (Lovenox) 40 mg SC 0900 [facility] Last Admin: 05/15/18 08:02 Dose: 40 mg Famotidine (Pepcid) 20 mg PO BID [facility] Last Admin: 05/15/18 20:42 Dose: 20 mg Glucagon (Glucagon) 1 mg IM PRN PRN PRN Reason: Hypoglycemia Glyburide (Diabeta) 5 mg PO QAM-WM [facility] Last Admin: 05/15/18 08:02 Dose: 5 mg Guaifenesin/Dextromethorphan (Robitussin Dm) 15 ml PO Q4H PRN PRN Reason: Cough Last Admin: 05/15/18 20:43 Dose: 15 ml Dextrose/Water (D5w) 1,000 mls @ 0 mls/hr IV .Q0M PRN PRN Reason: Hypoglycemia Sodium Chloride (Normal Saline 0.9%) 1,000 mls @ 70 mls/hr IV .[id number] [facility] Last Admin: 05/15/18 11:01 Dose: 1,000 mls Insulin Glargine 20 units/ (Miscellaneous Medication) 0.2 mls @ 0 mls/hr SC HS [facility] Last Admin: 05/15/18 20:45 Dose: 0.2 mls Insulin Glargine 40 units/ (Miscellaneous Medication) 0.4 mls @ 0 mls/hr SC QAM [facility] Last Admin: 05/15/18 08:34 Dose: 0.4 mls Ceftriaxone Sodium 1 gm/ (Sodium Chloride) 100 mls @ 200 mls/hr IVPB Q24HR [facility] Last Admin: 05/15/18 16:59 Dose: 100 mls Insulin Human Lispro (Humalog) 0 units SC .AGGRESSIVE SLIDING PRN PRN Reason: Aggressive Correctional Scale Last Admin: 05/15/18 11:01 Dose: 6 unit Insulin Human Lispro (Humalog) 0 units SC .BEDTIME SLIDING SC PRN PRN Reason: Bedtime Correctional Scale Last Admin: 05/13/18 20:49 Dose: 4 unit Ondansetron HCl (Zofran) 4 mg IVP Q6H PRN PRN Reason: Nausea/Vomiting Potassium Chloride (K-Dur) 20 meq PO BID-WM [facility] Stop: 05/16/18 08:01 Last Admin: 05/15/18 16:59 Dose: 20 meq Tramadol HCl (Ultram) 50 mg PO Q6HR PRN PRN Reason: Moderate Pain (4-6)
[2018-05-16] MEDS: PROVENTIL INHALER 6.7 G (200 INHALATIONS) INH SCH ×6 (02:05→22:16)
[2018-05-16] MEDS: Sodium Chloride 0.9% 1,000 ML IV SCH ×2 (03:56→04:55)
[2018-05-16] MEDS: HumaLOG 300 UNITS/3 ML VIAL SC PRN ×3 (05:08→17:50)
[2018-05-16] MEDS: Albuterol Sulfate 1.25 MG/3 ML NEB NEB SCH ×3 (07:11→22:18)
[2018-05-16] MEDS: Docusate 100 MG CAP PO SCH ×2 (08:47→21:20)
[2018-05-16] MEDS: Famotidine 20 MG TAB PO SCH ×2 (08:47→21:20)
[2018-05-16] MEDS: glyBURIDE 5 MG TAB PO SCH (08:47)
[2018-05-16] MEDS: Potassium Chloride 20 MEQ TAB PO SCH (08:47)
[2018-05-16] MEDS: Enoxaparin Sodium 40 MG/0.4 ML SYRINGE SC SCH (08:47)
[2018-05-16] MEDS: Betamethasone 0.1% Cream 15 GM TUBE TOP SCH ×2 (08:48→21:20)
[2018-05-16] MEDS: Insulin Glargine 40 UNITS in Pre-Filled Syringe 1 EACH SC SCH (08:48)
--- NOTE | 2018-05-16 10:04 | PDOC.PN ---
- Subjective Encounter Start Date: 05/16/18 Encounter Start Time: 07:50 Subjective: mild pain in left leg on ambulation, has gotten better overall -: no fever - Objective Resuscitation Status: Resuscitation Status FULL:Full Resuscitation MAR Reviewed: Yes Vital Signs & Weight: Vital Signs (12 hours) Temp Pulse Resp BP Pulse Ox 05/16/18 07:29 98.6 F 75 18 106/71 95 05/16/18 02:05 72 12 96 05/15/18 22:06 75 16 94 L Weight Weight 240 lb 7 oz I&O: 05/15/18 05/16/18 05/17/18 06:59 06:59 06:59 Intake Total 2675 2320 Balance 2675 2320 Result Diagrams: 05/15/18 03:39 05/15/18 03:39 Additional Labs: Accuchecks 05/16/18 05/15/18 05/15/18 05:06 20:54 15:50 POC Glucose 241 H 278 H 178 H 05/15/18 11:00 POC Glucose 232 H Phys Exam - Physical Examination HEENT: PERRLA, moist MMs Neck: no JVD, supple Respiratory: no wheezing, no rales Cardiovascular: RRR, no significant murmur Gastrointestinal: soft, non-tender, positive bowel sounds Musculoskeletal: pulses present left leg erythema is receding, edema+ Neurological: non-focal, moves all 4 limbs Psychiatric: normal affect, A&O x 3 Dx/Plan (1) Left leg cellulitis Code(s): L03.116 - CELLULITIS OF LEFT LOWER LIMB Status: Acute (2) Sepsis Code(s): A41.9 - SEPSIS, UNSPECIFIED ORGANISM Status: Resolved Qualifiers: Sepsis type: sepsis due to unspecified organism Qualified Code(s): A41.9 - Sepsis, unspecified organism (3) Asthma Code(s): J45.909 - UNSPECIFIED ASTHMA, UNCOMPLICATED Status: Chronic Qualifiers: Asthma severity: moderate (4) DM (diabetes mellitus), type 2, uncontrolled Code(s): E11.65 - TYPE 2 DIABETES MELLITUS WITH HYPERGLYCEMIA Status: Chronic Qualifiers: Qualified Code(s): E11.65 - Type 2 diabetes mellitus with hyperglycemia (5) Morbid obesity with BMI of 40.0-44.9, adult Code(s): E66.01 - MORBID (SEVERE) OBESITY DUE TO EXCESS CALORIES; Z68.41 - BODY MASS INDEX (BMI) 40.0-44.9, ADULT Status: Chronic - Plan is on ceftriaxone, will switch to keflex in am -: dc iv fluids, wbc is normal now -: dc plan in am -: continue home dose lantus and glyburide -: to ambulate in hallway as tolerated * . Review of Systems - Medications/Allergies Allergies/Adverse Reactions: Allergies Allergy/AdvReac Type Severity Reaction Status Date / Time ciprofloxacin [From Cipro] Allergy Verified 12/04/16 13:18 codeine Allergy Verified 12/04/16 13:18 Penicillins Allergy Verified 12/04/16 13:18 vancomycin Allergy Hives Verified 12/04/16 13:18 Medications: Current Medications Acetaminophen (Tylenol) 650 mg PO Q4H PRN PRN Reason: Headache/Fever or Pain Last Admin: 05/15/18 20:52 Dose: 650 mg Albuterol Sulfate (Proventil Hfa) 2 puff INH [id number] [facility] Last Admin: 05/16/18 07:09 Dose: 2 puff Albuterol Sulfate (Albuterol Sulfate) 1.25 mg NEB [id number] Last Admin: 05/16/18 07:11 Dose: Not Given Betamethasone Valerate (Valisone 0.1% Cream) 0 gm TOP BID [facility] Last Admin: 05/16/18 08:48 Dose: 1 applic Dextrose/Water (Dextrose 50%) 25 gm SLOW IVP PRN PRN PRN Reason: Hypoglycemia Docusate Sodium (Colace) 100 mg PO BID [facility] Last Admin: 05/16/18 08:47 Dose: Not Given Enoxaparin Sodium (Lovenox) 40 mg SC 0900 [facility] Last Admin: 05/16/18 08:47 Dose: 40 mg Famotidine (Pepcid) 20 mg PO BID [facility] Last Admin: 05/16/18 08:47 Dose: 20 mg Glucagon (Glucagon) 1 mg IM PRN PRN PRN Reason: Hypoglycemia Glyburide (Diabeta) 5 mg PO QAM-WM [facility] Last Admin: 05/16/18 08:47 Dose: 5 mg Guaifenesin/Dextromethorphan (Robitussin Dm) 15 ml PO Q4H PRN PRN Reason: Cough Last Admin: 05/15/18 20:43 Dose: 15 ml Dextrose/Water (D5w) 1,000 mls @ 0 mls/hr IV .Q0M PRN PRN Reason: Hypoglycemia Insulin Glargine 20 units/ (Miscellaneous Medication) 0.2 mls @ 0 mls/hr SC HS [facility] Last Admin: 05/15/18 20:45 Dose: 0.2 mls Insulin Glargine 40 units/ (Miscellaneous Medication) 0.4 mls @ 0 mls/hr SC QAM [facility] Last Admin: 05/16/18 08:48 Dose: 0.4 mls Ceftriaxone Sodium 1 gm/ (Sodium Chloride) 100 mls @ 200 mls/hr IVPB Q24HR [facility] Last Admin: 05/15/18 16:59 Dose: 100 mls Insulin Human Lispro (Humalog) 0 units SC .AGGRESSIVE SLIDING PRN PRN Reason: Aggressive Correctional Scale Last Admin: 05/16/18 05:08 Dose: 6 unit Insulin Human Lispro (Humalog) 0 units SC .BEDTIME SLIDING SC PRN PRN Reason: Bedtime Correctional Scale Last Admin: 05/13/18 20:49 Dose: 4 unit Ondansetron HCl (Zofran) 4 mg IVP Q6H PRN PRN Reason: Nausea/Vomiting Tramadol HCl (Ultram) 50 mg PO Q6HR PRN PRN Reason: Moderate Pain (4-6)
[2018-05-16] MEDS: cefTRIAXone\\ROCEPHIN 1 GM in Sodium Chloride 0.9% 100 ML IVPB SCH (16:14)
[2018-05-16] MEDS: Insulin Glargine 20 UNITS in Pre-Filled Syringe 1 EACH SC SCH (21:21)
[2018-05-16] MEDS: Acetaminophen 325 MG TAB PO PRN (21:21)
[2018-05-16] MEDS: Guaifenesin DM 100-10/5 ML UDCUP PO PRN (21:28)
[2018-05-17] MEDS: PROVENTIL INHALER 6.7 G (200 INHALATIONS) INH SCH ×3 (02:02→10:41)
[2018-05-17 04:14] LABS: Potassium 3.6 mmol/L (3.5-5.1)
[2018-05-17] MEDS: Albuterol Sulfate 1.25 MG/3 ML NEB NEB SCH (06:48)
[2018-05-17 07:44] VITALS: BP 111/73
[2018-05-17] MEDS: Enoxaparin Sodium 40 MG/0.4 ML SYRINGE SC SCH (08:10)
[2018-05-17] MEDS: Famotidine 20 MG TAB PO SCH (08:10)
[2018-05-17] MEDS: glyBURIDE 5 MG TAB PO SCH (08:10)
[2018-05-17] MEDS: Docusate 100 MG CAP PO SCH (08:12)
[2018-05-17] MEDS: Betamethasone 0.1% Cream 15 GM TUBE TOP SCH (08:12)
[2018-05-17] MEDS: Insulin Glargine 40 UNITS in Pre-Filled Syringe 1 EACH SC SCH (09:06)
[2018-05-17 10:35] VITALS: TEMP 98.5
--- NOTE | 2018-05-17 10:56 | PDOC.PN ---
- Subjective Encounter Start Date: 05/17/18 Encounter Start Time: 07:00 Subjective: feels better -: is amb in room - Objective Resuscitation Status: Resuscitation Status FULL:Full Resuscitation MAR Reviewed: Yes Vital Signs & Weight: Vital Signs (12 hours) Temp Pulse Resp BP Pulse Ox 05/17/18 10:34 98.5 F 64 16 111/73 97 05/17/18 08:00 98 05/17/18 07:43 98.2 F 58 L 16 111/73 98 Weight Weight 240 lb 7 oz I&O: 05/16/18 05/17/18 05/18/18 06:59 06:59 06:59 Intake Total 2320 950 Balance 2320 950 Result Diagrams: 05/15/18 03:39 05/17/18 03:13 Additional Labs: Accuchecks 05/17/18 05/16/18 05/16/18 05:13 21:16 16:13 POC Glucose 143 H 282 H 195 H 05/16/18 11:32 POC Glucose 245 H Phys Exam - Physical Examination HEENT: PERRLA, moist MMs Neck: no JVD, supple Respiratory: no wheezing, no rales Cardiovascular: RRR, no significant murmur Gastrointestinal: soft, non-tender, positive bowel sounds Musculoskeletal: pulses present, edema present Neurological: non-focal, moves all 4 limbs Psychiatric: normal affect, A&O x 3 Dx/Plan (1) Left leg cellulitis Code(s): L03.116 - CELLULITIS OF LEFT LOWER LIMB Status: Acute (2) Sepsis Code(s): A41.9 - SEPSIS, UNSPECIFIED ORGANISM Status: Resolved Qualifiers: Sepsis type: sepsis due to unspecified organism Qualified Code(s): A41.9 - Sepsis, unspecified organism (3) Asthma Code(s): J45.909 - UNSPECIFIED ASTHMA, UNCOMPLICATED Status: Chronic Qualifiers: Asthma severity: moderate (4) DM (diabetes mellitus), type 2, uncontrolled Code(s): E11.65 - TYPE 2 DIABETES MELLITUS WITH HYPERGLYCEMIA Status: Chronic Qualifiers: Qualified Code(s): E11.65 - Type 2 diabetes mellitus with hyperglycemia (5) Morbid obesity with BMI of 40.0-44.9, adult Code(s): E66.01 - MORBID (SEVERE) OBESITY DUE TO EXCESS CALORIES; Z68.41 - BODY MASS INDEX (BMI) 40.0-44.9, ADULT Status: Chronic - Plan keflex qid x 5 days then 250mg bid for prophylaxis -: dc pt home -: to f/u with pcp in 1 week * .
--- NOTE | 2018-05-17 13:30 | DIS ---
DATE OF ADMISSION: 05/13/2018 DATE OF DISCHARGE: 05/17/2018 DISCHARGE DISPOSITION: To home. PRIMARY DISCHARGE DIAGNOSIS: Left lower extremity cellulitis with sepsis, resolving. SECONDARY DISCHARGE DIAGNOSES: Obesity, diabetes mellitus type 2, asthma. PROCEDURES DONE DURING HOSPITALIZATION: The patient had ultrasound venous Doppler of left lower extremity done, which showed no evidence of DVT. Had a white count of 20 on the day of admission with white count dropping down to 6.5 on the 14th at 24% bands on admission. BUN and creatinine on the 14 was 8 and 0.6. Blood cultures x2, no growth. INPATIENT CONSULTS: Dr. Montes for Infectious Disease. DISCHARGE MEDICATIONS: Keflex 500 mg p.o. 4 times daily for 5 days, then 250 mg p.o. twice daily for 6 months for prevention of cellulitis, Levemir 50 units subcutaneously q.a.m. and 20 units subcutaneously at bedtime, albuterol inhaler q.4 hourly p.r.n., glyburide 5 mg p.o. daily. ALLERGIES: Allergic to CIPROFLOXACIN, CODEINE, PENICILLIN and VANCOMYCIN. BRIEF COURSE DURING HOSPITALIZATION: The patient initially came to ER with complaints of left leg pain along with swelling and redness. She has a known history of prior cellulitis as well. The patient was septic on arrival. She was placed on broad-spectrum antibiotics. The patient has chronic eczema on the dorsum of her left foot, which likely is the inciting event for her recurrent cellulitis. The patient has responded well to IV antibiotics and has been transitioned to Keflex. She needs to take Keflex 4 times a day for another 5 days and then transition to 250 mg twice daily for a period of 6 months for prevention of recurrent cellulitis. She is otherwise ambulating and eating well prior to discharge. Please see a face to face documentation on Flex[facility] for the day of discharge. [facility]
== END 2018-05-17 10:50 | disposition home or self-care (01) | DRG 872 ==
LOC: ERS 12:25 → T4-A 15:30
PROVIDERS: ADMIT Internal Medicine; ATTEND Internal Medicine
DX: A41.9 Sepsis, unspecified organism (principal); L03.116 Cellulitis of left lower limb; E87.1 Hypo-osmolality and hyponatremia; J45.901 Unspecified asthma with (acute) exacerbation; Z68.41 Body mass index [BMI] 40.0-44.9, adult; E11.65 Type 2 diabetes mellitus with hyperglycemia; I87.2 Venous insufficiency (chronic) (peripheral); E66.01 Morbid (severe) obesity due to excess calories; E87.6 Hypokalemia; F17.210 Nicotine dependence, cigarettes, uncomplicated; Z79.4 Long term (current) use of insulin; Z88.1 Allergy status to other antibiotic agents; Z88.0 Allergy status to penicillin; Z88.8 Allergy status to other drugs, medicaments and biological substances
CPT/HCPCS: 36415; 36416; 80048; 80053; 81003; 83605; 84132; 85025; 87040; 87086; 94664; 96361; 96365; 96375; J0692; J0696; J1650; J2270; J2405; J7050

== ENCOUNTER 2021-01-30 16:02 | Inpatient (IN) | payer SELFPAY ==
[~2021-01-30 16:02] MED LIST changes: -ISOVUE-370 76%-LOCM 1 ML ONE; +Iopamidol-370 76% 500 ML 1 ML ONE
[2021-01-30] MEDS ORDERED: Acetaminophen 500 MG TAB ONE (16:26)
[2021-01-30 16:31] LABS: Hemoglobin 13.9 g/dL (12.0-16.0); Mean Corpuscular HGB CONC 32.8 g/dL (32.0-36.0); Mean Corpuscular Hemoglobin 27.9 pg (27.0-31.0); Platelet Count 251 thou/uL (130-400); RBC Distribution Width 12.3 % (11.5-14.5); Red Blood Cell (RBC) Count 4.98 mill/uL (4.20-5.40); White Blood Cell (WBC) Count 21.7 thou/uL (4.8-10.8)
[2021-01-30 16:49] LABS: Band 18 % (5-11); Eosinophils 1 % (0-10); Lymphocytes 4 % (21-51); MDiff Complete? YES; Monocytes 1 % (0-10); Neutrophil 76 % (42-75); Platelet Morphology Comment Appears Adequate; RBC Morphology Normal
[2021-01-30 16:59] LABS: ALT (SGPT) 22 U/L (8-55); AST (SGOT) 50 U/L (5-34); Alkaline Phosphatase 170 U/L (40-110); Anion Gap 15 mmol/L (10-20); BUN (Urea Nitrogen) 11 mg/dL (7.0-18.7); Bilirubin, Total 0.6 mg/dL (0.2-1.2); Calc. Creatinine Clearance 0 mL/min (70-130); Calcium 9.3 mg/dL (7.8-10.44); Carbon Dioxide 22 mmol/L (22-29); Chloride 103 mmol/L (98-107); Globulin 3.7 g/dL (2.4-3.5); Glucose 248 mg/dL (70-105); Potassium 3.6 mmol/L (3.5-5.1); Protein, Total 7.7 g/dL (6.0-8.3); Sodium 136 mmol/L (136-145)
[2021-01-30] MEDS ORDERED: Clindamycin/D5W 900 mg/50 ml Premix Bag ONE (17:03)
[2021-01-30 17:38] LABS: Bilirubin Negative (Negative); Blood, Urine Negative (Negative); Clarity Turbid (Clear); Glucose, Urine (Dipstick) 500 mg/dL (Negative); Ketone, Urine Negative (Negative); Leukocyte 250 Leu/uL (Negative); Nitrite Negative (Negative); Protein, Urine (Dipstick) 20 mg/dL (Neg-Trace); RBC/HPF 0-3 HPF (0-3); Specific Gravity, Urine 1.025 (1.002-1.036); Squamous Epithelial 0-3 HPF (0-3); WBC/HPF 0-3 HPF (0-3)
[2021-01-30 17:44] LABS: Bacteria/HPF Rare-Few HPF (None Seen)
[2021-01-30] MEDS ORDERED: Ketorolac Tromethamine 30 MG/ML VIAL ONE (18:09)
[2021-01-30] MEDS ORDERED: Cefepime 2 GM VIAL ONE (18:09)
[2021-01-30] MEDS ORDERED: Ondansetron PF 4 MG/2 ML Vial ONE (18:36)
[2021-01-30 19:32] LABS: BHCG - Serum Negative (NEGATIVE); Pregs Control Background? CLEAR/WHITE (CLR/WHITE); Pregs Control Bar Appear? YES (CONTROL BAR)
[2021-01-30 23:46] VITALS: BMI 42.9
[2021-01-31] MEDS ORDERED: Sodium Chloride 0.9% 1,000 ML IV SCH (00:15)
[2021-01-31] MEDS ORDERED: Ondansetron ODT 4 MG TAB SL PRN (00:15)
[2021-01-31] MEDS ORDERED: Ondansetron PF 4 MG/2 ML Vial IVP PRN ×2 (00:15→17:25)
[2021-01-31] MEDS ORDERED: Dextrose 50% Abboject 50 ML SYRINGE SLOW IVP PRN (02:33)
[2021-01-31] MEDS ORDERED: Dextrose 5% in Water 1,000 ML IV PRN (02:33)
[2021-01-31] MEDS ORDERED: Albuterol Sulfate 2.5 mg/3 ml Neb NEB PRN (02:41)
[2021-01-31] MEDS: Acetaminophen 325 MG TAB PO PRN ×4 (03:38→23:53)
[2021-01-31] MEDS: Clindamycin/D5W 600 MG in Premix Bag 1 BAG IVPB SCH ×3 (03:38→20:08)
[2021-01-31] MEDS: Sodium Chloride 0.9% 1,000 ML IV SCH ×2 (03:38→17:28)
[2021-01-31 05:59] LABS: Hemoglobin 12.9 g/dL (12.0-16.0); Mean Corpuscular HGB CONC 33.6 g/dL (32.0-36.0); Mean Corpuscular Hemoglobin 28.7 pg (27.0-31.0); Mean Corpuscular Volume 85.5 fL (78.0-98.0); Platelet Count 228 thou/uL (130-400); RBC Distribution Width 12.6 % (11.5-14.5); Red Blood Cell (RBC) Count 4.49 mill/uL (4.20-5.40); White Blood Cell (WBC) Count 31.3 thou/uL (4.8-10.8)
[2021-01-31] MEDS ORDERED: HumaLOG 300 UNITS/3 ML VIAL SC PRN (06:06)
[2021-01-31 06:16] LABS: Band 23 % (5-11); Lymphocytes 2 % (21-51); MDiff Complete? YES; Neutrophil 75 % (42-75); Platelet Morphology Comment Appears Adequate; RBC Morphology Normal
[2021-01-31 06:17] LABS: Anion Gap 15 mmol/L (10-20); BUN (Urea Nitrogen) 12 mg/dL (7.0-18.7); Calc. Creatinine Clearance 145 mL/min (70-130); Carbon Dioxide 20 mmol/L (22-29); Chloride 105 mmol/L (98-107); Glucose 329 mg/dL (70-105); Potassium 3.5 mmol/L (3.5-5.1); Sodium 136 mmol/L (136-145)
[2021-01-31] MEDS: HumaLOG 300 UNITS/3 ML VIAL SC PRN ×2 (06:37→17:42)
[2021-01-31] MEDS: Cefepime 2 GM in Sodium Chloride 0.9% 100 ML IVPB SCH ×2 (06:38→17:28)
[2021-01-31] MEDS ORDERED: Lantus 1000 UNITS/10 ML VIAL SC SCH ×3 (09:00→21:00)
[2021-01-31] MEDS: Enoxaparin Sodium 40 MG/0.4 ML SYRINGE SC SCH (09:40)
[2021-01-31 12:37] LABS: SARS-CoV-2 PCR by NAA Not Detected (NotDetected)
[2021-01-31] MEDS: Lantus 1000 UNITS/10 ML VIAL SC SCH (20:08)
[2021-02-01] MEDS: Clindamycin/D5W 600 MG in Premix Bag 1 BAG IVPB SCH ×3 (03:49→20:37)
[2021-02-01] MEDS: Sodium Chloride 0.9% 1,000 ML IV SCH ×2 (03:49→20:38)
[2021-02-01] MEDS: Cefepime 2 GM in Sodium Chloride 0.9% 100 ML IVPB SCH ×2 (05:05→17:27)
[2021-02-01 06:41] LABS: #Lymphocytes 1.4 thou/uL (1.20-3.40); #Monocytes 0.9 thou/uL (0.11-0.59); #Neutrophils 14.1 thou/uL (1.40-6.50); %Basophils 0.3 % (0.0-1.0); %Eosinophils 0.2 % (0.0-10.0); %Lymphocytes 8.6 % (21.0-51.0); %Monocytes 5.1 % (0.0-10.0); %Neutrophils 85.8 % (42.0-75.0); Hemoglobin 11.5 g/dL (12.0-16.0); Mean Corpuscular HGB CONC 29.3 g/dL (32.0-36.0); Mean Corpuscular Hemoglobin 25.3 pg (27.0-31.0); Mean Corpuscular Volume 86.4 fL (78.0-98.0); Mean Platelet Volume 8.9 fL (7.4-10.4); Platelet Count 211 thou/uL (130-400); RBC Distribution Width 12.8 % (11.5-14.5); Red Blood Cell (RBC) Count 4.54 mill/uL (4.20-5.40); White Blood Cell (WBC) Count 16.5 thou/uL (4.8-10.8)
[2021-02-01 06:58] LABS: Anion Gap 10 mmol/L (10-20); BUN (Urea Nitrogen) 8 mg/dL (7.0-18.7); Calc. Creatinine Clearance 176 mL/min (70-130); Calcium 8.5 mg/dL (7.8-10.44); Carbon Dioxide 22 mmol/L (22-29); Chloride 106 mmol/L (98-107); Glucose 153 mg/dL (70-105); Potassium 3.1 mmol/L (3.5-5.1); Sodium 135 mmol/L (136-145)
[2021-02-01] MEDS: Lantus 1000 UNITS/10 ML VIAL SC SCH ×2 (08:56→20:49)
[2021-02-01] MEDS: Enoxaparin Sodium 40 MG/0.4 ML SYRINGE SC SCH (08:57)
[2021-02-01] MEDS ORDERED: Potassium Chloride 20 MEQ TAB PO SCH (10:15)
[2021-02-01] MEDS: Acetaminophen 325 MG TAB PO PRN (17:27)
[2021-02-01] MEDS: HumaLOG 300 UNITS/3 ML VIAL SC PRN (17:28)
[2021-02-02] MEDS: Sodium Chloride 0.9% 1,000 ML IV SCH (03:51)
[2021-02-02] MEDS: Clindamycin/D5W 600 MG in Premix Bag 1 BAG IVPB SCH ×2 (03:51→12:32)
[2021-02-02 04:32] LABS: #Eosinphils 0.1 thou/uL (0.0-0.7); #Lymphocytes 1.4 thou/uL (1.20-3.40); #Monocytes 0.4 thou/uL (0.11-0.59); #Neutrophils 6.2 thou/uL (1.40-6.50); %Eosinophils 1.4 % (0.0-10.0); %Lymphocytes 16.8 % (21.0-51.0); %Monocytes 5.2 % (0.0-10.0); %Neutrophils 76.6 % (42.0-75.0); Hemoglobin 11.4 g/dL (12.0-16.0); Mean Corpuscular HGB CONC 34.1 g/dL (32.0-36.0); Mean Corpuscular Hemoglobin 29.3 pg (27.0-31.0); Platelet Count 195 thou/uL (130-400); RBC Distribution Width 12.5 % (11.5-14.5); White Blood Cell (WBC) Count 8.1 thou/uL (4.8-10.8)
[2021-02-02 05:02] LABS: Anion Gap 11 mmol/L (10-20); BUN (Urea Nitrogen) 8 mg/dL (7.0-18.7); Calc. Creatinine Clearance 182 mL/min (70-130); Carbon Dioxide 24 mmol/L (22-29); Chloride 106 mmol/L (98-107); Glucose 108 mg/dL (70-105); Sodium 138 mmol/L (136-145)
[2021-02-02 05:13] LABS: Potassium 2.8 mmol/L (3.5-5.1)
[2021-02-02] MEDS ORDERED: Electrolyte Replacement Protocol 1 EACH FS PRN (05:54)
[2021-02-02] MEDS ORDERED: Potassium Chloride 20 MEQ TAB PO SCH (06:00)
[2021-02-02] MEDS: Cefepime 2 GM in Sodium Chloride 0.9% 100 ML IVPB SCH (06:11)
[2021-02-02 08:31] VITALS: BP 120/68; TEMP 98.2
[2021-02-02] MEDS: Potassium Bicarbonate/Cit Ac 20 MEQ TAB PO SCH ×2 (08:49→12:30)
[2021-02-02] MEDS: Lantus 1000 UNITS/10 ML VIAL SC SCH (08:51)
[2021-02-02] MEDS: Enoxaparin Sodium 40 MG/0.4 ML SYRINGE SC SCH (08:54)
== END 2021-02-02 13:07 | disposition home or self-care (01) | DRG 872 ==
LOC: ERS 16:02 → ONC 22:46
PROVIDERS: ADMIT Internal Medicine; ATTEND Internal Medicine
DX: A41.9 Sepsis, unspecified organism (principal); L03.116 Cellulitis of left lower limb; N39.0 Urinary tract infection, site not specified; Z68.41 Body mass index [BMI] 40.0-44.9, adult; J45.909 Unspecified asthma, uncomplicated; E11.65 Type 2 diabetes mellitus with hyperglycemia; I95.9 Hypotension, unspecified; R59.0 Localized enlarged lymph nodes; E66.01 Morbid (severe) obesity due to excess calories; Z20.822 Contact with and (suspected) exposure to COVID-19; E87.6 Hypokalemia; Z88.0 Allergy status to penicillin; Z88.1 Allergy status to other antibiotic agents; Z88.5 Allergy status to narcotic agent; Z90.89 Acquired absence of other organs; Z90.49 Acquired absence of other specified parts of digestive tract; Z87.891 Personal history of nicotine dependence
CPT/HCPCS: 36415; 36416; 71045; 74177; 80048; 80053; 81003; 81015; 83605; 84703; 85025; 87040; 87077; 87086; 87149; 87186; 93005; 96365; 96375; J0692; J1650; J1815; J1885; J2405; J3490; Q9967; U0003; U0005

== ENCOUNTER 2021-05-03 09:19 | Inpatient (IN) | payer SELFPAY ==
[2021-05-03] MEDS ORDERED: cefTRIAXone\\ROCEPHIN 2 GM VIAL ONE (09:49)
[2021-05-03] MEDS ORDERED: Aspirin Chewable 81 MG TAB ONE (09:49)
[2021-05-03] MEDS ORDERED: Sodium Chloride 0.9% 100 ML ONE (09:49)
[2021-05-03] MEDS ORDERED: Azithromycin 500 MG VIAL ONE (09:49)
[2021-05-03] MEDS ORDERED: Enoxaparin Sodium 100 MG/ML SYRINGE ONE (09:49)
[2021-05-03 09:54] LABS: #Lymphocytes 1.3 thou/uL (1.20-3.40); #Monocytes 0.4 thou/uL (0.11-0.59); #Neutrophils 3.4 thou/uL (1.40-6.50); %Eosinophils 0.8 % (0.0-10.0); %Lymphocytes 25.6 % (21.0-51.0); %Neutrophils 66.5 % (42.0-75.0); Hemoglobin 14.8 g/dL (12.0-16.0); Mean Corpuscular HGB CONC 33.8 g/dL (32.0-36.0); Mean Corpuscular Hemoglobin 28.8 pg (27.0-31.0); Mean Corpuscular Volume 85.3 fL (78.0-98.0); Mean Platelet Volume 8.7 fL (7.4-10.4); Platelet Count 248 thou/uL (130-400); RBC Distribution Width 12.6 % (11.5-14.5); Red Blood Cell (RBC) Count 5.15 mill/uL (4.20-5.40); White Blood Cell (WBC) Count 5.1 thou/uL (4.8-10.8)
[2021-05-03 10:21] LABS: ALT (SGPT) 28 U/L (8-55); AST (SGOT) 31 U/L (5-34); Albumin 3.8 g/dL (3.5-5.0); Alkaline Phosphatase 147 U/L (40-110); Anion Gap 23 mmol/L (10-20); BUN (Urea Nitrogen) 17 mg/dL (7.0-18.7); Bilirubin, Total 0.5 mg/dL (0.2-1.2); CK (CPK) 34 U/L (29-168); Calc. Creatinine Clearance 0 mL/min (70-130); Calcium 9.8 mg/dL (7.8-10.44); Carbon Dioxide 21 mmol/L (22-29); Chloride 97 mmol/L (98-107); Globulin 4.7 g/dL (2.4-3.5); Glucose 412 mg/dL (70-105); Lipase 31 U/L (8-78); Potassium 3.5 mmol/L (3.5-5.1); Protein, Total 8.5 g/dL (6.0-8.3); Sodium 137 mmol/L (136-145)
[2021-05-03] MEDS ORDERED: Insulin Regular 300 UNITS/3 ML VIAL ONE (11:57)
[2021-05-03] MEDS ORDERED: Ondansetron PF 4 MG/2 ML Vial IVP PRN (13:31)
[2021-05-03] MEDS ORDERED: Loperamide HCl 2 MG CAP PO PRN (13:31)
[2021-05-03] MEDS ORDERED: Calcium Carbonate 500 MG ChewTAB PO PRN (13:31)
[2021-05-03] MEDS ORDERED: Dextrose 50% Abboject 50 ML SYRINGE SLOW IVP PRN (13:46)
[2021-05-03] MEDS ORDERED: Dextrose 5% in Water 1,000 ML IV PRN (13:46)
[2021-05-03 13:53] LABS: SARS-CoV-2 NAA Rapid Test DETECTED (NotDetected)
[2021-05-03] MEDS ORDERED: REMDESIVIR 200 MG in Sodium Chloride 0.9% 250 ML 210 ML IV SCH (14:15)
[2021-05-03 14:55] LABS: Hemoglobin A1c 11.9 % (4.0-6.0)
[2021-05-03] MEDS ORDERED: Albuterol Sulfate 2.5 mg/3 ml Neb NEB SCH ×2 (19:00)
[2021-05-03] MEDS: Albuterol 200 PUFF (6.7GM INHALER) INH SCH (20:26)
[2021-05-03] MEDS: Colchicine 0.6 MG TAB PO SCH (20:27)
[2021-05-03] MEDS: Acetaminophen 325 MG TAB PO PRN (20:27)
[2021-05-03] MEDS: Guaifenesin DM 100-10/5 ML UDCUP PO PRN (20:28)
[2021-05-03] MEDS: Enoxaparin Sodium 40 MG/0.4 ML SYRINGE SC SCH (20:31)
[2021-05-03 20:39] VITALS: BMI 38.9
[2021-05-03] MEDS ORDERED: Lantus 1000 UNITS/10 ML VIAL SC SCH (21:00)
[2021-05-04] MEDS: Albuterol 200 PUFF (6.7GM INHALER) INH SCH ×5 (01:38→18:36)
[2021-05-04] MEDS: HumaLOG 300 UNITS/3 ML VIAL SC PRN ×4 (05:29→21:40)
[2021-05-04 06:10] LABS: #Lymphocytes 1.1 thou/uL (1.20-3.40); #Monocytes 0.5 thou/uL (0.11-0.59); #Neutrophils 4.1 thou/uL (1.40-6.50); %Basophils 0.5 % (0.0-1.0); %Eosinophils 0.8 % (0.0-10.0); %Lymphocytes 18.8 % (21.0-51.0); %Monocytes 8.8 % (0.0-10.0); %Neutrophils 71.1 % (42.0-75.0); Hemoglobin 13.6 g/dL (12.0-16.0); Mean Corpuscular HGB CONC 34.3 g/dL (32.0-36.0); Mean Corpuscular Volume 84.6 fL (78.0-98.0); Mean Platelet Volume 8.5 fL (7.4-10.4); Platelet Count 247 thou/uL (130-400); RBC Distribution Width 12.4 % (11.5-14.5); White Blood Cell (WBC) Count 5.7 thou/uL (4.8-10.8)
[2021-05-04 06:34] LABS: ALT (SGPT) 28 U/L (8-55); AST (SGOT) 32 U/L (5-34); Albumin 3.4 g/dL (3.5-5.0); Alkaline Phosphatase 135 U/L (40-110); Anion Gap 20 mmol/L (10-20); BUN (Urea Nitrogen) 11 mg/dL (7.0-18.7); Bilirubin, Total 0.5 mg/dL (0.2-1.2); Calc. Creatinine Clearance 145 mL/min (70-130); Carbon Dioxide 19 mmol/L (22-29); Chloride 103 mmol/L (98-107); Globulin 4.2 g/dL (2.4-3.5); Glucose 277 mg/dL (70-105); Potassium 3.2 mmol/L (3.5-5.1); Protein, Total 7.6 g/dL (6.0-8.3); Sodium 139 mmol/L (136-145)
[2021-05-04] MEDS ORDERED: Potassium Chloride 20 MEQ TAB PO SCH (07:30)
[2021-05-04] MEDS ORDERED: Enoxaparin Sodium 40 MG/0.4 ML SYRINGE SC SCH (09:00)
[2021-05-04] MEDS: Ascorbic Acid 500 mg Chewable Tablet PO SCH (09:17)
[2021-05-04] MEDS: Colchicine 0.6 MG TAB PO SCH ×2 (09:17→20:41)
[2021-05-04] MEDS: Acetaminophen 325 MG TAB PO PRN ×3 (09:17→20:41)
[2021-05-04] MEDS: Enoxaparin Sodium 40 MG/0.4 ML SYRINGE SC SCH ×2 (09:17→20:42)
[2021-05-04] MEDS: Zinc Sulfate 220 MG CAP PO SCH (09:18)
[2021-05-04] MEDS: Lantus 1000 UNITS/10 ML VIAL SC SCH ×2 (09:18→21:39)
[2021-05-04] MEDS: Dexamethasone 4 mg/ml Vial SLOW IVP SCH (09:18)
[2021-05-04] MEDS: Guaifenesin DM 100-10/5 ML UDCUP PO PRN ×3 (09:20→21:38)
[2021-05-04] MEDS: REMDESIVIR 100 MG in Sodium Chloride 0.9% 250 ML 230 ML IV SCH (21:38)
[2021-05-05] MEDS: Albuterol 200 PUFF (6.7GM INHALER) INH SCH ×4 (01:58→19:49)
[2021-05-05] MEDS: HumaLOG 300 UNITS/3 ML VIAL SC PRN ×4 (05:18→19:59)
[2021-05-05] MEDS: Guaifenesin DM 100-10/5 ML UDCUP PO PRN ×3 (05:27→19:58)
[2021-05-05 06:15] LABS: #Lymphocytes 1.1 thou/uL (1.20-3.40); #Monocytes 0.4 thou/uL (0.11-0.59); #Neutrophils 2.3 thou/uL (1.40-6.50); %Basophils 0.1 % (0.0-1.0); %Eosinophils 0.5 % (0.0-10.0); %Monocytes 10.7 % (0.0-10.0); %Neutrophils 59.7 % (42.0-75.0); Hemoglobin 13.7 g/dL (12.0-16.0); Mean Corpuscular HGB CONC 33.6 g/dL (32.0-36.0); Mean Corpuscular Hemoglobin 28.5 pg (27.0-31.0); Mean Corpuscular Volume 84.9 fL (78.0-98.0); Mean Platelet Volume 8.2 fL (7.4-10.4); Platelet Count 257 thou/uL (130-400); RBC Distribution Width 12.3 % (11.5-14.5); Red Blood Cell (RBC) Count 4.82 mill/uL (4.20-5.40); White Blood Cell (WBC) Count 3.8 thou/uL (4.8-10.8)
[2021-05-05 06:37] LABS: ALT (SGPT) 23 U/L (8-55); AST (SGOT) 14 U/L (5-34); Albumin 3.3 g/dL (3.5-5.0); Alkaline Phosphatase 126 U/L (40-110); Anion Gap 14 mmol/L (10-20); BUN (Urea Nitrogen) 13 mg/dL (7.0-18.7); Bilirubin, Total 0.4 mg/dL (0.2-1.2); CRP (Inflammatory) 16.25 mg/dL (= or < 0.5); Calc. Creatinine Clearance 141 mL/min (70-130); Calcium 9.5 mg/dL (7.8-10.44); Carbon Dioxide 23 mmol/L (22-29); Chloride 103 mmol/L (98-107); Globulin 4.4 g/dL (2.4-3.5); Glucose 306 mg/dL (70-105); Potassium 3.4 mmol/L (3.5-5.1); Protein, Total 7.7 g/dL (6.0-8.3); Sodium 137 mmol/L (136-145)
[2021-05-05] MEDS: Zinc Sulfate 220 MG CAP PO SCH (09:15)
[2021-05-05] MEDS: Colchicine 0.6 MG TAB PO SCH ×2 (09:15→19:58)
[2021-05-05] MEDS: Ascorbic Acid 500 mg Chewable Tablet PO SCH (09:15)
[2021-05-05] MEDS: Lantus 1000 UNITS/10 ML VIAL SC SCH ×2 (09:16→19:59)
[2021-05-05] MEDS: Enoxaparin Sodium 40 MG/0.4 ML SYRINGE SC SCH ×2 (09:17→19:59)
[2021-05-05] MEDS: Dexamethasone 4 mg/ml Vial SLOW IVP SCH (09:19)
[2021-05-05] MEDS: Acetaminophen 325 MG TAB PO PRN (19:58)
[2021-05-05] MEDS: REMDESIVIR 100 MG in Sodium Chloride 0.9% 250 ML 230 ML IV SCH (20:00)
[2021-05-06] MEDS: Albuterol 200 PUFF (6.7GM INHALER) INH SCH ×4 (01:34→19:00)
[2021-05-06] MEDS: Dexamethasone 4 mg/ml Vial SLOW IVP SCH (07:45)
[2021-05-06] MEDS: Ascorbic Acid 500 mg Chewable Tablet PO SCH (07:46)
[2021-05-06] MEDS: Zinc Sulfate 220 MG CAP PO SCH (07:46)
[2021-05-06] MEDS: Colchicine 0.6 MG TAB PO SCH ×2 (07:46→20:53)
[2021-05-06] MEDS: Lantus 1000 UNITS/10 ML VIAL SC SCH ×2 (07:47→20:55)
[2021-05-06] MEDS: Enoxaparin Sodium 40 MG/0.4 ML SYRINGE SC SCH ×2 (07:47→20:54)
[2021-05-06] MEDS: Guaifenesin DM 100-10/5 ML UDCUP PO PRN ×3 (07:49→20:53)
[2021-05-06 08:27] LABS: #Basophils 0.1 thou/uL (0.0-0.2); #Eosinphils 0.3 thou/uL (0.0-0.7); #Lymphocytes 1.8 thou/uL (1.20-3.40); #Monocytes 0.8 thou/uL (0.11-0.59); #Neutrophils 9.4 thou/uL (1.40-6.50); %Basophils 0.5 % (0.0-1.0); %Eosinophils 2.1 % (0.0-10.0); %Lymphocytes 14.2 % (21.0-51.0); %Monocytes 6.7 % (0.0-10.0); %Neutrophils 76.5 % (42.0-75.0); Hemoglobin 13.9 g/dL (12.0-16.0); Mean Corpuscular HGB CONC 33.1 g/dL (32.0-36.0); Mean Corpuscular Hemoglobin 27.9 pg (27.0-31.0); Mean Corpuscular Volume 84.3 fL (78.0-98.0); Mean Platelet Volume 8.2 fL (7.4-10.4); Platelet Count 375 thou/uL (130-400); RBC Distribution Width 12.3 % (11.5-14.5); Red Blood Cell (RBC) Count 4.99 mill/uL (4.20-5.40); White Blood Cell (WBC) Count 12.3 thou/uL (4.8-10.8)
[2021-05-06 08:47] LABS: ALT (SGPT) 16 U/L (8-55); AST (SGOT) 7 U/L (5-34); Albumin 3.2 g/dL (3.5-5.0); Alkaline Phosphatase 114 U/L (40-110); Anion Gap 14 mmol/L (10-20); BUN (Urea Nitrogen) 18 mg/dL (7.0-18.7); Bilirubin, Total 0.3 mg/dL (0.2-1.2); CRP (Inflammatory) 6.58 mg/dL (= or < 0.5); Calc. Creatinine Clearance 167 mL/min (70-130); Calcium 9.5 mg/dL (7.8-10.44); Carbon Dioxide 27 mmol/L (22-29); Chloride 104 mmol/L (98-107); Globulin 4.1 g/dL (2.4-3.5); Glucose 122 mg/dL (70-105); Protein, Total 7.3 g/dL (6.0-8.3); Sodium 142 mmol/L (136-145)
[2021-05-06 08:51] LABS: Potassium 2.5 mmol/L (3.5-5.1)
[2021-05-06] MEDS ORDERED: Potassium Chloride 20 MEQ TAB PO SCH (12:15)
[2021-05-06] MEDS: HumaLOG 300 UNITS/3 ML VIAL SC PRN ×3 (12:20→20:55)
[2021-05-06] MEDS: Potassium Bicarbonate/Cit Ac 20 MEQ TAB PO SCH ×2 (17:37→22:30)
[2021-05-06] MEDS: Acetaminophen 325 MG TAB PO PRN (20:53)
[2021-05-06] MEDS: REMDESIVIR 100 MG in Sodium Chloride 0.9% 250 ML 230 ML IV SCH (20:54)
[2021-05-07] MEDS: Albuterol 200 PUFF (6.7GM INHALER) INH SCH ×4 (00:54→18:27)
[2021-05-07] MEDS: Potassium Bicarbonate/Cit Ac 20 MEQ TAB PO SCH ×2 (05:19→11:26)
[2021-05-07] MEDS: Guaifenesin DM 100-10/5 ML UDCUP PO PRN ×2 (05:19→20:56)
[2021-05-07 06:53] LABS: Anion Gap 11 mmol/L (10-20); BUN (Urea Nitrogen) 18 mg/dL (7.0-18.7); Calc. Creatinine Clearance 165 mL/min (70-130); Calcium 9.3 mg/dL (7.8-10.44); Carbon Dioxide 32 mmol/L (22-29); Chloride 102 mmol/L (98-107); Glucose 109 mg/dL (70-105); Potassium 3.1 mmol/L (3.5-5.1); Sodium 142 mmol/L (136-145)
[2021-05-07] MEDS: Enoxaparin Sodium 40 MG/0.4 ML SYRINGE SC SCH ×2 (08:15→20:50)
[2021-05-07] MEDS: Zinc Sulfate 220 MG CAP PO SCH (08:16)
[2021-05-07] MEDS: Ascorbic Acid 500 mg Chewable Tablet PO SCH (08:16)
[2021-05-07] MEDS: Colchicine 0.6 MG TAB PO SCH ×2 (08:16→20:49)
[2021-05-07] MEDS: Dexamethasone 4 mg/ml Vial SLOW IVP SCH (08:16)
[2021-05-07] MEDS: Acetaminophen 325 MG TAB PO PRN ×2 (08:16→20:56)
[2021-05-07] MEDS: Lantus 1000 UNITS/10 ML VIAL SC SCH ×2 (08:19→20:50)
[2021-05-07] MEDS: HumaLOG 300 UNITS/3 ML VIAL SC PRN (15:59)
[2021-05-07] MEDS: REMDESIVIR 100 MG in Sodium Chloride 0.9% 250 ML 230 ML IV SCH (22:09)
[2021-05-08] MEDS: Albuterol 200 PUFF (6.7GM INHALER) INH SCH ×3 (00:24→12:23)
[2021-05-08 05:46] VITALS: TEMP 98.2
[2021-05-08] MEDS: Zinc Sulfate 220 MG CAP PO SCH (08:24)
[2021-05-08] MEDS: Ascorbic Acid 500 mg Chewable Tablet PO SCH (08:24)
[2021-05-08] MEDS: Colchicine 0.6 MG TAB PO SCH (08:24)
[2021-05-08] MEDS: Dexamethasone 4 mg/ml Vial SLOW IVP SCH (08:24)
[2021-05-08] MEDS: Lantus 1000 UNITS/10 ML VIAL SC SCH (08:25)
[2021-05-08] MEDS: Enoxaparin Sodium 40 MG/0.4 ML SYRINGE SC SCH (08:26)
[2021-05-08] MEDS: HumaLOG 300 UNITS/3 ML VIAL SC PRN (12:24)
[2021-05-08 12:33] VITALS: BP 112/71
== END 2021-05-08 15:49 | disposition home or self-care (01) | DRG 177 ==
LOC: ERS 09:19 → ERHOLD 10:33 → T4-B 19:57
PROVIDERS: ADMIT Family Medicine; ATTEND Internal Medicine
PROC: XW033E5 Introduction of Remdesivir Anti-infective into Peripheral Vein, Percutaneous Approach, New Technology Group 5 (ICD-10-PCS; principal; 2021-05-03)
PROC: 8E0ZXY6 Isolation (ICD-10-PCS; 2021-05-03)
DX: U07.1 COVID-19 (principal); J12.82 Pneumonia due to coronavirus disease 2019; J96.01 Acute respiratory failure with hypoxia; J45.21 Mild intermittent asthma with (acute) exacerbation; F41.9 Anxiety disorder, unspecified; F32.9 Major depressive disorder, single episode, unspecified; L30.9 Dermatitis, unspecified; E11.65 Type 2 diabetes mellitus with hyperglycemia; E66.9 Obesity, unspecified; E87.6 Hypokalemia; Z91.19 Patient's noncompliance with other medical treatment and regimen; Z90.49 Acquired absence of other specified parts of digestive tract; Z90.89 Acquired absence of other organs; Z91.14 Patient's other noncompliance with medication regimen; Z88.1 Allergy status to other antibiotic agents; Z88.5 Allergy status to narcotic agent; Z88.0 Allergy status to penicillin; Z88.8 Allergy status to other drugs, medicaments and biological substances; Z83.3 Family history of diabetes mellitus; Z68.39 Body mass index [BMI] 39.0-39.9, adult; Z79.899 Other long term (current) drug therapy
CPT/HCPCS: 36415; 36416; 71045; 71275; 80048; 80053; 82550; 82728; 83036; 83690; 83880; 84484; 85025; 85379; 86140; 93005; 94760; 96365; 96367; 96372; 96375; J0456; J0696; J1100; J1650; J1815; J3490; J7050; U0002

== ENCOUNTER 2021-08-19 14:02 | Emergency (ER) | payer SELFPAY ==
[2021-08-19] MEDS ORDERED: Ketorolac Tromethamine 30 MG/ML VIAL ONE (14:37)
[2021-08-19 15:26] LABS: Bacteria/HPF None Seen HPF (None Seen); Bilirubin Negative (Negative); Blood, Urine 3+ (Negative); Glucose, Urine (Dipstick) 200 mg/dL (Negative); Ketone, Urine Negative (Negative); Leukocyte Negative Leu/uL (Negative); Nitrite Negative (Negative); Protein, Urine (Dipstick) 300 mg/dL (Neg-Trace); RBC/HPF Greater than 50 HPF (0-3); Specific Gravity, Urine 1.028 (1.002-1.036); Squamous Epithelial 0-3 HPF (0-3); Urobilinogen Normal mg/dL (Less than 2)
[2021-08-19 15:29] LABS: Pregnancy Test - Urine (BHCG) Negative (Negative); Pregu Control Background? CLEAR/WHITE (CLR/WHITE); Pregu Control Bar Appear? YES (CONTROL BAR); Specific Gravity 1.028 (1.002-1.036)
[2021-08-19 15:33] LABS: Clarity Hazy (Clear)
[2021-08-20 11:44] LABS: SARS-CoV-2 PCR by NAA Not Detected (NotDetected)
== END 2021-08-19 16:03 | disposition home or self-care (01) ==
LOC: ERS 14:02
DX: J11.1 Influenza due to unidentified influenza virus with other respiratory manifestations (principal); N39.0 Urinary tract infection, site not specified; J45.909 Unspecified asthma, uncomplicated; E11.9 Type 2 diabetes mellitus without complications; Z79.4 Long term (current) use of insulin; Z79.899 Other long term (current) drug therapy; Z20.822 Contact with and (suspected) exposure to COVID-19
CPT/HCPCS: 81003; 81015; 81025; 87804; 96372; 99283; J1885; U0003; U0005

== ENCOUNTER 2022-06-25 08:40 | Emergency (ER) | payer SELFPAY ==
[2022-06-25] MEDS ORDERED: Acetaminophen 500 MG TAB ONE (09:31)
[2022-06-25 10:00] LABS: SARS-CoV-2 NAA Rapid Test Not Detected (NotDetected)
[2022-06-25] MEDS ORDERED: Dexameth. Sod Phosp. 10 MG/ML (CHEMO USE ONLY) ONE (10:10)
== END 2022-06-25 10:25 | disposition home or self-care (01) ==
LOC: ERS 08:40
DX: J02.0 Streptococcal pharyngitis (principal); E11.9 Type 2 diabetes mellitus without complications; Z20.822 Contact with and (suspected) exposure to COVID-19
CPT/HCPCS: 71045; 87430; J1100

== ENCOUNTER 2023-04-09 12:00 | Emergency (ER) | payer SELFPAY ==
[2023-04-09] MEDS ORDERED: Ondansetron PF 4 MG/2 ML Vial ONE (13:29)
[2023-04-09 13:35] LABS: Bacteria/HPF None Seen HPF (None Seen); Bilirubin Negative (Negative); Blood, Urine 1+ (Negative); CAUTI Indications for Culture Dysuria,urgency,freq; Clarity Clear (Clear); Glucose, Urine (Dipstick) Greater than 1000 mg/dL (Negative); Ketone, Urine 60 mg/dL (Negative); Leukocyte Negative Leu/uL (Negative); Nitrite Negative (Negative); Protein, Urine (Dipstick) 50 mg/dL (Neg-Trace); RBC/HPF 0-3 HPF (0-3); Specific Gravity, Urine 1.032 (1.002-1.036); Squamous Epithelial 0-3 HPF (0-3); Urobilinogen Normal mg/dL (Less than 2); WBC/HPF 0-3 HPF (0-3)
[2023-04-09 13:37] LABS: Urine Culture Reflex No No
[2023-04-09 13:50] LABS: #Eosinphils 0.1 thou/uL (0.0-0.7); #Monocytes 0.6 thou/uL (0.11-0.59); #Neutrophils 6.6 thou/uL (1.40-6.50); %Basophils 0.4 % (0.0-1.0); %Lymphocytes 6.2 % (21.0-51.0); %Monocytes 7.9 % (0.0-10.0); %Neutrophils 84.2 % (42.0-75.0); Hematocrit 43.8 % (36.0-47.0); Hemoglobin 14.4 g/dL (12.0-16.0); Mean Corpuscular HGB CONC 32.9 g/dL (32.0-36.0); Mean Corpuscular Hemoglobin 27.5 pg (27.0-31.0); Mean Corpuscular Volume 83.6 fl (78.0-98.0); Mean Platelet Volume 11.3 fL (7.4-10.4); Platelet Count 236 10x3/uL (130-400); RBC Distribution Width 12.8 % (11.5-14.5); Red Blood Cell (RBC) Count 5.24 mill/uL (4.20-5.40); White Blood Cell (WBC) Count 7.9 10x3/uL (4.8-10.8)
[2023-04-09 14:17] LABS: SARS-CoV-2 NAA Rapid Test DETECTED (NotDetected)
[2023-04-09 14:17] LABS: ALT (SGPT) 15 U/L (8-55); AST (SGOT) 16 U/L (5-34); Albumin 4.5 g/dL (3.5-5.0); Alkaline Phosphatase 144 U/L (40-110); Anion Gap 13 mmol/L (10-20); BUN (Urea Nitrogen) 6 mg/dL (7.0-18.7); Bilirubin, Total 0.8 mg/dL (0.2-1.2); Calc. Creatinine Clearance 0 mL/min (70-130); Calcium 9.5 mg/dL (7.8-10.44); Carbon Dioxide 25 mmol/L (22-29); Chloride 97 mmol/L (98-107); Estimated GFR 77; Globulin 4.3 g/dL (2.4-3.5); Glucose 328 mg/dL (70-105); Potassium 3.7 mmol/L (3.5-5.1); Protein, Total 8.8 g/dL (6.0-8.3); Sodium 131 mmol/L (136-145)
[2023-04-09] MEDS ORDERED: Ketorolac Tromethamine 30 MG/ML VIAL ONE (14:25)
[2023-04-09] MEDS ORDERED: Acetaminophen 325 MG TAB ONE (14:25)
== END 2023-04-09 16:41 | disposition home or self-care (01) ==
LOC: ERS 12:00
DX: U07.1 COVID-19 (principal); E11.9 Type 2 diabetes mellitus without complications; Z79.4 Long term (current) use of insulin
CPT/HCPCS: 80053; 81001; 85025; 93005; 96361; 96374; 96375; J1885; J2405

== ENCOUNTER 2023-06-09 17:01 | Emergency (ER) | payer SELFPAY ==
[2023-06-09] MEDS ORDERED: Acetaminophen 500 MG TAB ONE (18:26)
== END 2023-06-09 18:40 | disposition home or self-care (01) ==
LOC: ERS 17:01
DX: K03.81 Cracked tooth (principal); R09.81 Nasal congestion; E11.9 Type 2 diabetes mellitus without complications
CPT/HCPCS: 99283

== ENCOUNTER 2023-07-28 23:59 | Inpatient (IN) | payer SELFPAY ==
[2023-07-29] MEDS ORDERED: Ketorolac Tromethamine 30 MG/ML VIAL ONE (00:45)
[2023-07-29] MEDS ORDERED: Ondansetron PF 4 MG/2 ML Vial ONE (00:45)
[2023-07-29] MEDS ORDERED: Famotidine/PF 20 mg/2ml Vial ONE (00:46)
[2023-07-29 01:12] LABS: #Eosinphils 0.1 thou/uL (0.0-0.7); #Monocytes 0.5 thou/uL (0.11-0.59); %Basophils 0.1 % (0.0-1.0); %Eosinophils 0.6 % (0.0-10.0); %Lymphocytes 2.7 % (21.0-51.0); %Monocytes 2.6 % (0.0-10.0); %Neutrophils 93.6 % (42.0-75.0); Hematocrit 37.9 % (36.0-47.0); Hemoglobin 12.2 g/dL (12.0-16.0); Mean Corpuscular HGB CONC 32.2 g/dL (32.0-36.0); Mean Corpuscular Hemoglobin 27.4 pg (27.0-31.0); Mean Platelet Volume 11.4 fL (7.4-10.4); Platelet Count 264 10x3/uL (130-400); RBC Distribution Width 13.5 % (11.5-14.5); Red Blood Cell (RBC) Count 4.46 mill/uL (4.20-5.40); White Blood Cell (WBC) Count 20.4 10x3/uL (4.8-10.8)
[2023-07-29 01:19] LABS: BHCG - Serum Negative (NEGATIVE); Pregs Control Background? CLEAR/WHITE (CLR/WHITE); Pregs Control Bar Appear? YES (CONTROL BAR)
[2023-07-29 01:26] LABS: SARS-CoV-2 NAA Rapid Test Not Detected (NotDetected)
[2023-07-29 01:41] LABS: ALT (SGPT) 11 U/L (8-55); AST (SGOT) 16 U/L (5-34); Albumin 3.9 g/dL (3.5-5.0); Alkaline Phosphatase 122 U/L (40-110); Anion Gap 16 mmol/L (10-20); BUN (Urea Nitrogen) 14 mg/dL (7.0-18.7); Bilirubin, Total 0.8 mg/dL (0.2-1.2); Calc. Creatinine Clearance 0 mL/min (70-130); Calcium 9.1 mg/dL (7.8-10.44); Carbon Dioxide 24 mmol/L (22-29); Chloride 99 mmol/L (98-107); Estimated GFR 71; Globulin 3.6 g/dL (2.4-3.5); Glucose 289 mg/dL (70-105); Potassium 3.2 mmol/L (3.5-5.1); Protein, Total 7.5 g/dL (6.0-8.3); Sodium 136 mmol/L (136-145)
[2023-07-29] MEDS ORDERED: Potassium Chloride 20 MEQ TAB ONE (02:23)
[2023-07-29] MEDS ORDERED: Sodium Chloride 0.9% 100 ML ONE (02:31)
[2023-07-29] MEDS ORDERED: Cefepime 2 GM VIAL ONE (02:31)
[2023-07-29 02:56] LABS: Bacteria/HPF None Seen HPF (None Seen); Bilirubin Negative (Negative); Blood, Urine 2+ (Negative); CAUTI Indications for Culture Pelvic or flank pain; Clarity Clear (Clear); Glucose, Urine (Dipstick) Greater than 1000 mg/dL (Negative); Ketone, Urine 10 mg/dL (Negative); Leukocyte Negative Leu/uL (Negative); Nitrite Negative (Negative); Protein, Urine (Dipstick) 30 mg/dL (Neg-Trace); RBC/HPF 0-3 HPF (0-3); Specific Gravity, Urine 1.019 (1.002-1.036); Squamous Epithelial 0-3 HPF (0-3); Urobilinogen Normal mg/dL (Less than 2); WBC/HPF 0-3 HPF (0-3)
[2023-07-29 02:58] LABS: Urine Culture Reflex No No
[2023-07-29 03:00] LABS: Amphetamine Not Detected (NotDetected); Barbiturates Screen Not Detected (NotDetected); Benzodiazepine Screen Not Detected (NotDetected); Cocaine Metabolite Screen Not Detected (NotDetected); Methadone Not Detected (NotDetected); Methamphetamine Not Detected (NotDetected); Opiate Screen Not Detected (NotDetected); Oxycodone Screen Not Detected (NotDetected); Phencyclidine (PCP) Not Detected (NotDetected); THC/Cannabinoid Screen Not Detected (NotDetected); Tricyclic Screen Not Detected (NotDetected)
[2023-07-29] MEDS ORDERED: Vancomycin (BATCH) 2 GM in Premix 1 BAG IVPB SCH (03:00)
[2023-07-29] MEDS ORDERED: HumaLOG 300 UNITS/3 ML VIAL SC PRN (03:42)
[2023-07-29] MEDS ORDERED: Acetaminophen 650 MG Suppository PR PRN (03:42)
[2023-07-29] MEDS ORDERED: Glucagon 1 MG/ML KIT IM PRN (03:42)
[2023-07-29] MEDS ORDERED: Dextrose 5% in Water 1,000 ML IV PRN (03:42)
[2023-07-29] MEDS ORDERED: Ondansetron PF 4 MG/2 ML Vial IVP PRN (03:42)
[2023-07-29] MEDS ORDERED: Dextrose 50% Abboject 50 ML SYRINGE SLOW IVP PRN (03:42)
[2023-07-29] MEDS ORDERED: Ondansetron ODT 4 MG TAB PO PRN (03:42)
[2023-07-29] MEDS ORDERED: Sodium Chloride 0.9% 1,000 ML IV SCH (03:45)
[2023-07-29 04:28] LABS: CK (CPK) 70 U/L (29-168); Magnesium 1.5 mg/dL (1.6-2.6)
[2023-07-29] MEDS ORDERED: Gabapentin 300 MG CAP PO SCH (04:30)
[2023-07-29] MEDS ORDERED: Electrolyte Replacement Protocol 1 EACH FS SCH (04:45)
[2023-07-29] MEDS ORDERED: Magnesium Sulfate In Water 4 GM in Premix 1 BAG IVPB SCH (05:00)
[2023-07-29 05:14] VITALS: BMI 40.0
[2023-07-29] MEDS: HumaLOG 300 UNITS/3 ML VIAL SC PRN ×3 (05:44→16:57)
[2023-07-29] MEDS: Famotidine 20 MG TAB PO SCH ×2 (08:09→20:39)
[2023-07-29] MEDS: Loratadine 10 MG TAB PO SCH (08:10)
[2023-07-29] MEDS: Insulin Glargine 30 UNITS/0.3 ML VIAL SC SCH ×2 (08:10→20:40)
[2023-07-29] MEDS ORDERED: Vancomycin 1 GM in Sodium Chloride 0.9% 250 ML 300 ML IVPB SCH (09:00)
[2023-07-29 09:06] LABS: #Basophils 0.1 thou/uL (0.0-0.2); #Monocytes 1.6 thou/uL (0.11-0.59); #Neutrophils 33.4 thou/uL (1.40-6.50); %Basophils 0.2 % (0.0-1.0); %Eosinophils 0.1 % (0.0-10.0); %Monocytes 4.5 % (0.0-10.0); %Neutrophils 91.2 % (42.0-75.0); Hematocrit 34.9 % (36.0-47.0); Mean Corpuscular HGB CONC 31.5 g/dL (32.0-36.0); Mean Corpuscular Hemoglobin 26.9 pg (27.0-31.0); Mean Corpuscular Volume 85.3 fl (78.0-98.0); Mean Platelet Volume 11.7 fL (7.4-10.4); Platelet Count 227 10x3/uL (130-400); RBC Distribution Width 13.5 % (11.5-14.5); Red Blood Cell (RBC) Count 4.09 mill/uL (4.20-5.40)
[2023-07-29 09:14] LABS: Manual Diff?? YES
[2023-07-29 09:33] LABS: Anion Gap 14 mmol/L (10-20); BUN (Urea Nitrogen) 14 mg/dL (7.0-18.7); Calc. Creatinine Clearance 104 mL/min (70-130); Calcium 8.5 mg/dL (7.8-10.44); Carbon Dioxide 20 mmol/L (22-29); Chloride 105 mmol/L (98-107); Estimated GFR 70; Glucose 278 mg/dL (70-105); Magnesium 2.4 mg/dL (1.6-2.6); Sodium 136 mmol/L (136-145)
[2023-07-29] MEDS ORDERED: Potassium Chloride 20 MEQ TAB PO SCH (09:45)
[2023-07-29] MEDS: glyBURIDE 5 MG TAB PO SCH (10:06)
[2023-07-29 10:43] LABS: Band 33 % (5-11); CellaVision Operator ID LAB.GE; Metamyelocyte 4 % (0-0); Monocytes 4 % (0-10); Neutrophil 59 % (42-75); Platelet Adequacy Comment Platelets Normal; Polychromasia SLIGHT = 2-3 cells HPF (0-2); Total Cell Count 100
[2023-07-29] MEDS: Acetaminophen 325 MG TAB PO PRN ×2 (11:05→20:39)
[2023-07-29 13:03] LABS: White Blood Cell (WBC) Count 36.6 10x3/uL (4.8-10.8)
[2023-07-29] MEDS: Cefepime 2 GM in Sodium Chloride 0.9% 100 ML IVPB SCH (13:40)
[2023-07-29] MEDS: Vancomycin 1 GM in Premix 1 BAG IVPB SCH (15:04)
[2023-07-29] MEDS: Clindamycin/D5W 900 MG in Premix 1 BAG IVPB SCH (21:32)
[2023-07-30] MEDS: Cefepime 2 GM in Sodium Chloride 0.9% 100 ML IVPB SCH ×2 (01:17→12:39)
[2023-07-30] MEDS: Vancomycin 1 GM in Premix 1 BAG IVPB SCH (02:26)
[2023-07-30] MEDS: Clindamycin/D5W 900 MG in Premix 1 BAG IVPB SCH ×3 (05:37→21:37)
[2023-07-30 06:19] LABS: #Eosinphils 0.1 thou/uL (0.0-0.7); #Monocytes 0.9 thou/uL (0.11-0.59); #Neutrophils 15.3 thou/uL (1.40-6.50); %Basophils 0.2 % (0.0-1.0); %Eosinophils 0.5 % (0.0-10.0); %Lymphocytes 8.6 % (21.0-51.0); %Monocytes 4.9 % (0.0-10.0); %Neutrophils 85.3 % (42.0-75.0); Hematocrit 32.1 % (36.0-47.0); Hemoglobin 10.3 g/dL (12.0-16.0); Mean Corpuscular HGB CONC 32.1 g/dL (32.0-36.0); Mean Corpuscular Hemoglobin 27.7 pg (27.0-31.0); Mean Corpuscular Volume 86.3 fl (78.0-98.0); Mean Platelet Volume 11.4 fL (7.4-10.4); Platelet Count 199 10x3/uL (130-400); RBC Distribution Width 13.9 % (11.5-14.5); Red Blood Cell (RBC) Count 3.72 mill/uL (4.20-5.40); White Blood Cell (WBC) Count 17.9 10x3/uL (4.8-10.8)
[2023-07-30 06:42] LABS: Anion Gap 10 mmol/L (10-20); BUN (Urea Nitrogen) 15 mg/dL (7.0-18.7); Calc. Creatinine Clearance 140 mL/min (70-130); Calcium 8.3 mg/dL (7.8-10.44); Carbon Dioxide 26 mmol/L (22-29); Chloride 104 mmol/L (98-107); Estimated GFR 99; Glucose 79 mg/dL (70-105); Potassium 3.4 mmol/L (3.5-5.1); Sodium 137 mmol/L (136-145)
[2023-07-30] MEDS ORDERED: Potassium Chloride 20 MEQ TAB PO SCH (08:00)
[2023-07-30] MEDS: Acetaminophen 325 MG TAB PO PRN ×2 (08:46→19:57)
[2023-07-30] MEDS: Insulin Glargine 30 UNITS/0.3 ML VIAL SC SCH ×2 (08:47→19:57)
[2023-07-30] MEDS: Famotidine 20 MG TAB PO SCH ×2 (08:47→19:56)
[2023-07-30] MEDS: glyBURIDE 5 MG TAB PO SCH (08:47)
[2023-07-30] MEDS: Loratadine 10 MG TAB PO SCH (08:47)
[2023-07-30 13:54] LABS: Vancomycin, Trough 13.4 ug/mL
[2023-07-30] MEDS ORDERED: Vancomycin 1 GM in Premix 1 BAG IVPB SCH (14:00)
[2023-07-30] MEDS: Potassium Chloride 20 MEQ TAB PO SCH (16:35)
[2023-07-30] MEDS: Vancomycin (BATCH) 1.25 GM in Premix 1 BAG IVPB SCH (16:35)
[2023-07-31] MEDS: Cefepime 2 GM in Sodium Chloride 0.9% 100 ML IVPB SCH ×2 (01:41→13:49)
[2023-07-31] MEDS: Vancomycin (BATCH) 1.25 GM in Premix 1 BAG IVPB SCH ×2 (03:19→14:41)
[2023-07-31] MEDS: Clindamycin/D5W 900 MG in Premix 1 BAG IVPB SCH (05:33)
[2023-07-31 06:09] LABS: #Eosinphils 0.3 thou/uL (0.0-0.7); #Monocytes 0.8 thou/uL (0.11-0.59); #Neutrophils 5.6 thou/uL (1.40-6.50); %Basophils 0.3 % (0.0-1.0); %Eosinophils 3.1 % (0.0-10.0); %Lymphocytes 22.3 % (21.0-51.0); %Monocytes 9.6 % (0.0-10.0); %Neutrophils 64.2 % (42.0-75.0); Mean Corpuscular HGB CONC 31.3 g/dL (32.0-36.0); Mean Corpuscular Hemoglobin 27.1 pg (27.0-31.0); Mean Corpuscular Volume 86.7 fl (78.0-98.0); Platelet Count 206 10x3/uL (130-400); Red Blood Cell (RBC) Count 3.69 mill/uL (4.20-5.40); White Blood Cell (WBC) Count 8.7 10x3/uL (4.8-10.8)
[2023-07-31 06:32] LABS: Anion Gap 11 mmol/L (10-20); BUN (Urea Nitrogen) 14 mg/dL (7.0-18.7); Calc. Creatinine Clearance 136 mL/min (70-130); Calcium 8.4 mg/dL (7.8-10.44); Carbon Dioxide 27 mmol/L (22-29); Chloride 107 mmol/L (98-107); Estimated GFR 96; Glucose 106 mg/dL (70-105); Potassium 3.8 mmol/L (3.5-5.1); Sodium 141 mmol/L (136-145)
[2023-07-31] MEDS: Acetaminophen 325 MG TAB PO PRN ×2 (06:49→20:17)
[2023-07-31] MEDS: Loratadine 10 MG TAB PO SCH (08:41)
[2023-07-31] MEDS: Famotidine 20 MG TAB PO SCH ×2 (08:41→20:17)
[2023-07-31] MEDS: Potassium Chloride 20 MEQ TAB PO SCH ×2 (08:41→16:37)
[2023-07-31] MEDS: Insulin Glargine 30 UNITS/0.3 ML VIAL SC SCH ×2 (08:41→20:18)
[2023-07-31] MEDS: glyBURIDE 5 MG TAB PO SCH (10:47)
[2023-08-01] MEDS: Cefepime 2 GM in Sodium Chloride 0.9% 100 ML IVPB SCH (01:48)
[2023-08-01 02:42] LABS: Vancomycin, Trough 17.4 ug/mL
[2023-08-01] MEDS: Vancomycin (BATCH) 1.25 GM in Premix 1 BAG IVPB SCH (03:09)
[2023-08-01] MEDS: Potassium Chloride 20 MEQ TAB PO SCH (07:58)
[2023-08-01] MEDS: Loratadine 10 MG TAB PO SCH (07:59)
[2023-08-01] MEDS: Famotidine 20 MG TAB PO SCH (07:59)
[2023-08-01] MEDS: glyBURIDE 5 MG TAB PO SCH (07:59)
[2023-08-01] MEDS: Insulin Glargine 30 UNITS/0.3 ML VIAL SC SCH (07:59)
[2023-08-01] MEDS ORDERED: FLU VACC QS2023-24(6MOS UP)/PF 60 MCG/0.5 ML SYRINGE IM ONE (09:00)
[2023-08-01 12:04] VITALS: BP 150/86; TEMP 98.5
== END 2023-08-01 12:51 | disposition home or self-care (01) | DRG 872 ==
LOC: ERS 23:59 → OBSVTOIN 07-29 03:49 → T4-A 07-29 03:49
PROVIDERS: ADMIT Student in an Organized Health Care Education/Training Program; ATTEND Family Medicine
DX: A41.9 Sepsis, unspecified organism (principal); L03.116 Cellulitis of left lower limb; Z68.41 Body mass index [BMI] 40.0-44.9, adult; E11.9 Type 2 diabetes mellitus without complications; J45.909 Unspecified asthma, uncomplicated; F41.9 Anxiety disorder, unspecified; F32.A Depression, unspecified; E87.6 Hypokalemia; E11.65 Type 2 diabetes mellitus with hyperglycemia; D72.825 Bandemia; Z88.1 Allergy status to other antibiotic agents; E66.01 Morbid (severe) obesity due to excess calories; Z88.0 Allergy status to penicillin; Z79.4 Long term (current) use of insulin; Z79.899 Other long term (current) drug therapy; Z91.148 Patient's other noncompliance with medication regimen for other reason; Z90.49 Acquired absence of other specified parts of digestive tract; Z98.890 Other specified postprocedural states; Z11.52 Encounter for screening for COVID-19
CPT/HCPCS: 36415; 36416; 74177; 80048; 80053; 80202; 80306; 81001; 82550; 82565; 83605; 83735; 83880; 84145; 84703; 85025; 87040; 87077; 87086; 87804; 96361; 96372; 96374; 96375; 96376; G0378; J0692; J1650; J1815; J1885; J2405; J3370; J3370-JW; J3475; J3490; S0028; U0002

== ENCOUNTER 2023-08-28 11:16 | Inpatient (IN) | payer SELFPAY ==
[~2023-08-28 11:16] MED LIST changes: -Iopamidol-370 76% 500 ML 1 ML ONE; +Iopamidol-370 76% 500 ML MDV (1 ML CHARGE) ONE
[2023-08-28] MEDS ORDERED: Acetaminophen 500 MG TAB ONE (11:54)
[2023-08-28 12:38] LABS: Bacteria/HPF None Seen HPF (None Seen); Bilirubin Negative (Negative); Blood, Urine 3+ (Negative); CAUTI Indications for Culture Dysuria,urgency,freq; Clarity Clear (Clear); Glucose, Urine (Dipstick) 200 mg/dL (Negative); Ketone, Urine Trace mg/dL (Negative); Leukocyte Negative Leu/uL (Negative); Nitrite Negative (Negative); Protein, Urine (Dipstick) 30 mg/dL (Neg-Trace); RBC/HPF Greater than 50 HPF (0-3); Specific Gravity, Urine 1.016 (1.002-1.036); Squamous Epithelial 0-3 HPF (0-3); Urobilinogen Normal mg/dL (Less than 2); pH, Urine 5.5 (5.0-9.0)
[2023-08-28 12:46] LABS: SARS-CoV-2 NAA Rapid Test Not Detected (NotDetected)
[2023-08-28 12:54] LABS: Urine Culture Reflex No No
[2023-08-28] MEDS ORDERED: Ondansetron ODT 4 MG TAB ONE (13:18)
[2023-08-28 13:46] LABS: #Monocytes 1.1 thou/uL (0.11-0.59); #Neutrophils 22.8 thou/uL (1.40-6.50); %Basophils 0.2 % (0.0-1.0); %Eosinophils 0.1 % (0.0-10.0); %Monocytes 4.6 % (0.0-10.0); %Neutrophils 92.6 % (42.0-75.0); Hematocrit 36.3 % (36.0-47.0); Hemoglobin 11.9 g/dL (12.0-16.0); Mean Corpuscular HGB CONC 32.8 g/dL (32.0-36.0); Mean Corpuscular Hemoglobin 27.5 pg (27.0-31.0); Mean Corpuscular Volume 83.8 fl (78.0-98.0); Mean Platelet Volume 11.4 fL (7.4-10.4); Platelet Count 246 10x3/uL (130-400); RBC Distribution Width 13.6 % (11.5-14.5); Red Blood Cell (RBC) Count 4.33 mill/uL (4.20-5.40); White Blood Cell (WBC) Count 24.6 10x3/uL (4.8-10.8)
[2023-08-28 14:01] LABS: BHCG - Serum Negative (NEGATIVE); Pregs Control Background? CLEAR/WHITE (CLR/WHITE); Pregs Control Bar Appear? YES (CONTROL BAR)
[2023-08-28 14:09] LABS: ALT (SGPT) 11 U/L (8-55); AST (SGOT) 14 U/L (5-34); Albumin 3.8 g/dL (3.5-5.0); Alkaline Phosphatase 111 U/L (40-110); Anion Gap 15 mmol/L (10-20); BUN (Urea Nitrogen) 12 mg/dL (7.0-18.7); Bilirubin, Total 0.7 mg/dL (0.2-1.2); Calc. Creatinine Clearance 0 mL/min (70-130); Calcium 8.5 mg/dL (7.8-10.44); Carbon Dioxide 23 mmol/L (22-29); Chloride 103 mmol/L (98-107); Estimated GFR 95; Globulin 3.5 g/dL (2.4-3.5); Glucose 220 mg/dL (70-105); Lipase 17 U/L (8-78); Potassium 3.1 mmol/L (3.5-5.1); Protein, Total 7.3 g/dL (6.0-8.3); Sodium 138 mmol/L (136-145)
[2023-08-28] MEDS ORDERED: Cefepime 2 GM VIAL ONE (15:44)
[2023-08-28] MEDS ORDERED: Sodium Chloride 0.9% 100 ML ONE (15:44)
[2023-08-28] MEDS ORDERED: HYDROcodone/Acetaminophen 10/325 mg Tablet PO PRN (16:10)
[2023-08-28] MEDS ORDERED: Glucagon 1 MG/ML KIT IM PRN (16:10)
[2023-08-28] MEDS ORDERED: HumaLOG 300 UNITS/3 ML VIAL SC PRN (16:10)
[2023-08-28] MEDS ORDERED: Dextrose 5% in Water 1,000 ML IV PRN (16:10)
[2023-08-28] MEDS ORDERED: Dextrose 50% Abboject 50 ML SYRINGE SLOW IVP PRN (16:10)
[2023-08-28] MEDS ORDERED: Ondansetron PF 4 MG/2 ML Vial IVP PRN (16:10)
[2023-08-28] MEDS ORDERED: VANCOMYCIN IVPB PRN (17:29)
[2023-08-28] MEDS ORDERED: Potassium Chloride 20 MEQ TAB PO SCH (17:30)
[2023-08-28] MEDS ORDERED: Vancomycin (BATCH) 2 GM in Premix 1 BAG IVPB SCH (17:45)
[2023-08-28 18:08] VITALS: BMI 39.6
[2023-08-28] MEDS: Acetaminophen 325 MG TAB PO PRN (18:20)
[2023-08-28] MEDS: HumaLOG 300 UNITS/3 ML VIAL SC PRN (18:20)
[2023-08-28] MEDS: Insulin Glargine 30 UNITS/0.3 ML VIAL SC SCH (20:34)
[2023-08-29] MEDS: Cefepime 2 GM in Sodium Chloride 0.9% 100 ML IVPB SCH ×2 (04:51→15:20)
[2023-08-29 06:18] LABS: #Monocytes 1.1 thou/uL (0.11-0.59); %Basophils 0.2 % (0.0-1.0); %Eosinophils 0.2 % (0.0-10.0); %Lymphocytes 9.2 % (21.0-51.0); %Monocytes 5.6 % (0.0-10.0); %Neutrophils 84.3 % (42.0-75.0); Hematocrit 32.5 % (36.0-47.0); Hemoglobin 10.3 g/dL (12.0-16.0); Mean Corpuscular HGB CONC 31.7 g/dL (32.0-36.0); Mean Corpuscular Volume 85.3 fl (78.0-98.0); Platelet Count 232 10x3/uL (130-400); Red Blood Cell (RBC) Count 3.81 mill/uL (4.20-5.40)
[2023-08-29 06:42] LABS: Anion Gap 12 mmol/L (10-20); BUN (Urea Nitrogen) 11 mg/dL (7.0-18.7); Calc. Creatinine Clearance 144 mL/min (70-130); Calcium 8.2 mg/dL (7.8-10.44); Carbon Dioxide 25 mmol/L (22-29); Chloride 103 mmol/L (98-107); Estimated GFR 104; Glucose 164 mg/dL (70-105); Sodium 137 mmol/L (136-145)
[2023-08-29] MEDS: Acetaminophen 325 MG TAB PO PRN ×2 (08:31→21:47)
[2023-08-29] MEDS: Loratadine 10 MG TAB PO SCH (08:31)
[2023-08-29] MEDS: glyBURIDE 5 MG TAB PO SCH (08:32)
[2023-08-29] MEDS: Vancomycin 1 GM in Premix 1 BAG IVPB SCH ×2 (08:32→18:40)
[2023-08-29] MEDS: Insulin Glargine 30 UNITS/0.3 ML VIAL SC SCH ×2 (08:33→21:49)
[2023-08-29] MEDS ORDERED: FLU VACC QS2023-24(6MOS UP)/PF 60 MCG/0.5 ML SYRINGE IM ONE (09:00)
[2023-08-29] MEDS ORDERED: Magnevist 469MG/ML 20 ML VIAL ONE ×2 (10:21)
[2023-08-30] MEDS: Cefepime 2 GM in Sodium Chloride 0.9% 100 ML IVPB SCH ×2 (04:25→16:24)
[2023-08-30 06:19] LABS: #Eosinphils 0.2 thou/uL (0.0-0.7); #Monocytes 0.9 thou/uL (0.11-0.59); %Basophils 0.4 % (0.0-1.0); %Eosinophils 2.4 % (0.0-10.0); %Lymphocytes 22.7 % (21.0-51.0); %Monocytes 11.2 % (0.0-10.0); Hematocrit 32.9 % (36.0-47.0); Hemoglobin 10.4 g/dL (12.0-16.0); Mean Corpuscular HGB CONC 31.6 g/dL (32.0-36.0); Mean Corpuscular Hemoglobin 27.2 pg (27.0-31.0); Mean Corpuscular Volume 85.9 fl (78.0-98.0); Mean Platelet Volume 11.9 fL (7.4-10.4); Platelet Count 218 10x3/uL (130-400); RBC Distribution Width 14.1 % (11.5-14.5); Red Blood Cell (RBC) Count 3.83 mill/uL (4.20-5.40); White Blood Cell (WBC) Count 7.9 10x3/uL (4.8-10.8)
[2023-08-30] MEDS: HumaLOG 300 UNITS/3 ML VIAL SC PRN ×2 (06:26→18:14)
[2023-08-30 06:53] LABS: Vancomycin, Trough 11.3 ug/mL
[2023-08-30 06:54] LABS: Anion Gap 10 mmol/L (10-20); BUN (Urea Nitrogen) 12 mg/dL (7.0-18.7); Calc. Creatinine Clearance 133 mL/min (70-130); Calcium 8.4 mg/dL (7.8-10.44); Carbon Dioxide 28 mmol/L (22-29); Chloride 104 mmol/L (98-107); Estimated GFR 95; Glucose 219 mg/dL (70-105); Potassium 3.1 mmol/L (3.5-5.1); Sodium 139 mmol/L (136-145)
[2023-08-30] MEDS ORDERED: Vancomycin (BATCH) 1.25 GM in Premix 1 BAG IVPB SCH (08:00)
[2023-08-30] MEDS ORDERED: Potassium Chloride 20 MEQ TAB PO SCH (08:00)
[2023-08-30] MEDS: glyBURIDE 5 MG TAB PO SCH (09:03)
[2023-08-30] MEDS: Loratadine 10 MG TAB PO SCH (09:04)
[2023-08-30] MEDS: Insulin Glargine 30 UNITS/0.3 ML VIAL SC SCH (09:04)
[2023-08-30 11:57] VITALS: TEMP 98
[2023-08-30 18:31] VITALS: BP 164/77
== END 2023-08-30 19:00 | disposition home or self-care (01) | DRG 872 ==
LOC: ERS 11:16 → 2SW 15:24
PROVIDERS: ADMIT Internal Medicine; ATTEND Family Medicine
DX: A41.9 Sepsis, unspecified organism (principal); L03.119 Cellulitis of unspecified part of limb; E11.9 Type 2 diabetes mellitus without complications; J45.909 Unspecified asthma, uncomplicated; E66.9 Obesity, unspecified; F41.9 Anxiety disorder, unspecified; F32.A Depression, unspecified; E87.6 Hypokalemia; E66.01 Morbid (severe) obesity due to excess calories; R65.10 Systemic inflammatory response syndrome (SIRS) of non-infectious origin without acute organ dysfunction; Z11.52 Encounter for screening for COVID-19; Z88.5 Allergy status to narcotic agent; Z88.0 Allergy status to penicillin; Z88.1 Allergy status to other antibiotic agents; Z88.8 Allergy status to other drugs, medicaments and biological substances; Z90.49 Acquired absence of other specified parts of digestive tract; Z90.89 Acquired absence of other organs; Z79.899 Other long term (current) drug therapy
CPT/HCPCS: 36415; 36416; 71046; 72157; 72158; 74177; 80048; 80053; 80202; 81001; 83605; 83690; 84703; 85025; 87040; 96365; J0692; J1815; J3370; J3370-JW; J3490; Q0162

== ENCOUNTER 2023-10-09 06:14 | Emergency (ER) | payer SELFPAY ==
[2023-10-09 07:11] LABS: SARS-CoV-2 NAA Rapid Test Not Detected (NotDetected)
[2023-10-09] MEDS ORDERED: Ibuprofen 800 MG TAB ONE (07:15)
== END 2023-10-09 07:42 | disposition short-term general hospital (02) ==
LOC: ERS 06:14
DX: J10.1 Influenza due to other identified influenza virus with other respiratory manifestations (principal); E11.9 Type 2 diabetes mellitus without complications; J45.909 Unspecified asthma, uncomplicated
CPT/HCPCS: 99283

== ENCOUNTER 2024-02-22 10:40 | Emergency (ER) | payer SELFPAY ==
[2024-02-22] MEDS ORDERED: Iopamidol-370 76% 500 ML MDV (1 ML CHARGE) ONE (11:00)
[2024-02-22] MEDS ORDERED: Ondansetron ODT 4 MG TAB ONE (11:17)
[2024-02-22] MEDS ORDERED: Ketorolac Tromethamine 30 MG (1 mL) VIAL ONE (11:21)
[2024-02-22 11:22] LABS: #Basophils 0.05 10x3/uL (0.0-0.2); %Basophils 0.2 % (0.0-1.0); %Eosinophils 0.2 % (0.0-10.0); %Lymphocytes 3.5 % (21.0-51.0); %Monocytes 3.9 % (0.0-10.0); %Neutrophils 91.8 % (42.0-75.0); Hematocrit 40.7 % (36.0-47.0); Hemoglobin 13.7 g/dL (12.0-16.0); Mean Corpuscular HGB CONC 33.7 g/dL (32.0-36.0); Mean Corpuscular Hemoglobin 27.8 pg (27.0-31.0); Mean Corpuscular Volume 82.7 fL (78.0-98.0); Mean Platelet Volume 11.8 fL (7.4-10.4); Platelet Count 239 10x3/uL (130-400); RBC Distribution Width 12.9 % (11.5-14.5); Red Blood Cell (RBC) Count 4.92 mill/uL (4.20-5.40)
[2024-02-22 11:31] LABS: BHCG - Serum Negative (NEGATIVE); Pregs Control Background? CLEAR/WHITE (CLR/WHITE); Pregs Control Bar Appear? YES (CONTROL BAR)
[2024-02-22 11:47] LABS: ALT (SGPT) 9 U/L (8-55); AST (SGOT) 10 U/L (5-34); Albumin 3.8 g/dL (3.5-5.0); Alkaline Phosphatase 121 U/L (40-110); Anion Gap 19 mmol/L (10-20); BUN (Urea Nitrogen) 11 mg/dL (7.0-18.7); Calc. Creatinine Clearance 0 mL/min (70-130); Calcium 9.2 mg/dL (7.8-10.44); Carbon Dioxide 19 mmol/L (22-29); Chloride 102 mmol/L (98-107); Estimated GFR 66; Globulin 3.9 g/dL (2.4-3.5); Glucose 464 mg/dL (70-105); Lipase 22 U/L (8-78); Potassium 3.6 mmol/L (3.5-5.1); Protein, Total 7.7 g/dL (6.0-8.3); Sodium 136 mmol/L (136-145)
[2024-02-22 11:58] LABS: Bacteria/HPF None Seen HPF (None Seen); Bilirubin Negative (Negative); Blood, Urine Negative (Negative); CAUTI Indications for Culture Fever or rigors; Clarity Clear (Clear); Glucose, Urine (Dipstick) Greater than 1000 mg/dL (Negative); Ketone, Urine 20 mg/dL (Negative); Leukocyte 25 Leu/uL (Negative); Nitrite Negative (Negative); Protein, Urine (Dipstick) Negative (Neg-Trace); RBC/HPF 0-3 HPF (0-3); Specific Gravity, Urine 1.034 (1.002-1.036); Squamous Epithelial 0-3 HPF (0-3); Urobilinogen Normal mg/dL (Less than 2); WBC/HPF 0-3 HPF (0-3)
[2024-02-22 12:00] LABS: Urine Culture Reflex No No
[2024-02-22] MEDS ORDERED: Sodium Chloride 0.9% 100 ML ONE (12:18)
[2024-02-22] MEDS ORDERED: cefTRIAXone (ROCEPHIN) 2 GM VIAL ONE (12:18)
[2024-02-22] MEDS ORDERED: Fluconazole 100 MG TAB ONE (13:49)
[2024-02-22] MEDS ORDERED: Doxycycline 100 MG CAP ONE (14:21)
[2024-02-22] MEDS ORDERED: metroNIDAZOLE 500 MG (100 mL) BAG ONE (14:21)
[2024-02-23 04:30] LABS: Chlamydia by PCR, Vaginal Swab Not Detected (NotDetected); GC by PCR, Vaginal Swab Not Detected (NotDetected)
== END 2024-02-22 16:45 | disposition short-term general hospital (02) ==
LOC: ERS 10:40
DX: N70.93 Salpingitis and oophoritis, unspecified (principal); E11.9 Type 2 diabetes mellitus without complications
CPT/HCPCS: 74177; 76856; 80053; 81001; 83690; 84703; 85025; 87480; 87491; 87510; 87591; 87660; 96361; 96365; 96367; 96375; J0696; J1885; J3490; Q0162

== ENCOUNTER 2024-07-08 04:27 | Emergency (ER) | payer SELFPAY ==
[2024-07-08] MEDS ORDERED: cefTRIAXone (ROCEPHIN) 1 GM VIAL ONE (04:44)
[2024-07-08] MEDS ORDERED: Sterile Water 10 ML ONE (04:44)
[2024-07-08] MEDS ORDERED: Dexamethasone 10 MG/ML VIAL ONE (04:44)
[2024-07-08] MEDS ORDERED: Lidocaine 1% PF 5 ML VIAL ONE (04:45)
== END 2024-07-08 05:58 | disposition home or self-care (01) ==
LOC: ERS 04:27
DX: R05.1 Acute cough (principal); E11.9 Type 2 diabetes mellitus without complications
CPT/HCPCS: 71045; 96372; J0696; J1100